=== PATIENT | female | born 1945 | race Caucasian/White ===

== ENCOUNTER → 2017-01-01 | Outpatient (CLI) | payer OTHER ==
[~2017-01-01] MED LIST: CALCIUM + D600 M1 PO; CYAN10005 PO; EVS60 PO; FLUT0.15 NAE; HYDR25TA4 PO; LISI-461 PO; LORA-741 PO; PRLSR20 PO; SIMV20TA2 PO; VITACAP9 PO; ZNTT/150 PO
--- NOTE | 2017-01-01 15:30 | MAMMOGRAPHY REPORT ---
BILATERAL DIGITAL SCREENING MAMMOGRAM WITH CAD: 01/01/2017 CLINICAL HISTORY: Routine screening examination. TECHNIQUE: Bilateral CC and MLO views were obtained. Current study was also evaluated with a Compu ter Aided Detection (CAD) system. COMPARISON: Comparison is made to exams dated: 01/06/2015 mammogram, 01/05/2014 mammogram, 01/04/2013 mammogram, 10/02/2015 ultrasound, 12/26/2010 mammogram, and 11/22/2009 mammogram - [facility]. BREAST COMPOSITION: There are scattered areas of fibroglandular density in both breasts. 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 There are other scattered benign-appearing calcifications bilaterally. Minimal vascular calcification as well. No new suspicious mass, architectural distortion or cluster of microcalcific ations is seen. IMPRESSION: ACR BI-RADS CATEGORY 1: NEGATIVE There is no mammographic evidence of malignancy. A 1 year screening mammogram is recommended. The p atient will receive written notification of the results. Approximately 10% of breast cancers are not detected with mammography. A negative mammographic repor t should not delay biopsy if a clinically suggestive mass is present. Mitzy Burk M.D. ay/:01/01/2017 15:02:53 Finish Patcher: Roslyn SMITH)(Marck), [facility] letter sent: Normal 1/2 BI-RADS Code: ACR BI-RADS Category 1: Negative
== END | disposition home or self-care (01) ==
LOC: C.MAMM 10:08
PROVIDERS: ATTEND Family Medicine
DX: Z12.31 Encounter for screening mammogram for malignant neoplasm of breast (principal)

== ENCOUNTER → 2017-01-14 | Outpatient (CLI) | payer OTHER ==
[2017-01-14 12:33] LABS: CHOLESTEROL/HDL RATIO 3.4
== END | disposition home or self-care (01) ==
LOC: C.LABPVFM 08:59
PROVIDERS: ATTEND Family Medicine
DX: E78.5 Hyperlipidemia, unspecified (principal)

== ENCOUNTER → 2017-02-17 | Outpatient (CLI) | payer OTHER ==
[~2017-02-17] MED LIST changes: -EVS60 PO; +RALO60TA31 PO
== END | disposition home or self-care (01) ==
LOC: C.LABPVFM 11:49
PROVIDERS: ATTEND Nurse Practitioner
DX: N39.0 Urinary tract infection, site not specified (principal)

== ENCOUNTER → 2017-07-03 | Outpatient (CLI) | payer OTHER ==
[~2017-07-03] MED LIST changes: +EVS60 PO; -RALO60TA31 PO
[2017-07-03 13:22] LABS: ALT/SGPT 25 U/L (12-78); BLOOD UREA NITROGEN 21 mg/dl (7-18); BUN/CREATININE RATIO 18.8 (10-20); CALCIUM 9.7 mg/dl (8.5-10.1); CARBON DIOXIDE 27 mmol/L (21-32); CHLORIDE 102 mmol/L (98-107); CHOLESTEROL 212 mg/dl (0-200); GLUCOSE 117 mg/dl (70-99); SODIUM 137 mmol/L (136-145); TRIGLYCERIDES 203 mg/dl (0-150); VERY LOW DENSITY LIPOPROT CALC 41 mg/dl
[2017-07-03 13:25] LABS: ALB/GLOB RATIO 1.1 (0.9-2); ALKALINE PHOSPHATASE 64 U/L (45-117); AST/SGOT 17 U/L (15-37); CHOLESTEROL/HDL RATIO 4.1; HDL CHOLESTEROL 52 mg/dl; LDL CHOLESTEROL CALCULATED 119 mg/dl
== END | disposition home or self-care (01) ==
LOC: C.LABPVFM 08:57
PROVIDERS: ATTEND Family Medicine
DX: Z00.00 Encounter for general adult medical examination without abnormal findings (principal); E78.5 Hyperlipidemia, unspecified

== ENCOUNTER → 2017-07-07 | Outpatient (CLI) | payer OTHER ==
[2017-07-07 12:47] LABS: ESTIMATED AVERAGE GLUCOSE 134 mg/dl; HA1C FLAG Normal (Normal)
== END | disposition home or self-care (01) ==
LOC: C.LABPVFM 08:54
PROVIDERS: ATTEND Family Medicine
DX: R73.09 Other abnormal glucose (principal)

== ENCOUNTER → 2017-07-15 | Day surgery (SDC) | payer OTHER ==
[2017-07-14 09:02] VITALS: Ht 167.6 cm; Wt 81.4 kg
[~2017-07-15] VITALS: Ht 167.6 cm; Wt 81.4 kg
[~2017-07-15] MED LIST changes: +LIDOCAINE HCL 2% 2 ML VIAL (20MG/ML) ONE; +PROPOFOL IV EMULSION 10 MG/ML 20 ML VIAL IV ONE; +SODIUM CHLORIDE 0.9% 500ML 500 ML IV ONE
--- NOTE | 2017-07-15 14:11 | Endo History and Physical ---
History & Physical Date of Service: Jul 15, 2017. Chief Complaint: Reflux, history of gi bleed Referring Physician: Dr. Baldomero Chan History of Present Illness Burning chest pain. Past Medical History Hypertension Past Surgical History Hx Cardiac Surgery: No Hx Internal Defibrillator: No Hx Pacemaker: No Hx Abdominal Surgery: Yes (PITER BSO) Hx of Implantable Prosthesis: No Hx Post-Op Nausea and Vomiting: No Hx Cancer Surgery: No Hx Thoracic Surgery: No Hx Orthopedic: No Hx Urinary Tract Surgery: No Family History None Social History Smoking Status: Never Smoker Hx Substance Use: No Hx Alcohol Use: No Allergies Coded Allergies: Chlordiazepoxide (Verified Allergy, Intermediate, HIVES, 07/14/17) Latex1 -Allergic Contact Dermititis (Verified Adverse Reaction, Mild, LOCAL DERMATITIS, 07/14/17) Current Medications Reported Home Medications Medications Dose Route/Sig Max Daily Dose Days Date Category Flonase Allergy Relief (Fluticasone Propionate (Nasal)) 50 Mcg/Act Spr 2 [place] NILS BID 07/14/17 Reported Zantac (Ranitidine HCl) 150 Mg Tab 150 Mg PO BID 07/14/17 Reported Cranberry Urinary Comfort (Vitamins C & E) 1 Cap Cap 2 Cap PO TID 07/14/17 Reported Zocor (Simvastatin) 20 Mg Tab 20 Mg PO HS 07/14/17 Reported Prilosec (Omeprazole) 20 Mg Capcr 20 Mg PO BID 07/14/17 Reported Hctz (Hydrochlorothiazide) 25 Mg Tab 25 Mg PO QAM 02/05/16 Reported Ativan (Lorazepam) 0.5 Mg Tab 0.5 Mg PO PRN 07/20/14 Reported Lisinopril 10 Mg Tab 10 Mg PO QAM 07/20/14 Reported Evista (Raloxifene) 60 Mg Tab 60 Mg PO QAM 07/20/14 Reported Vitamin B-12 (Cyanocobalamin) 1,000 Mcg Tab 1,000 Mcg PO DAILY 02/12/10 Reported Calcium + D600 M1 600 Mg PO DAILY 02/12/10 Reported Vital Signs Weight (Kilograms): 81.36 Height (Feet): 5 Height (Inches): 6 Date Time Temp Pulse Resp B/P (MAP) Pulse Ox O2 Delivery O2 Flow Rate FiO2 07/15/17 13:07 36.7 78 20 154/86 (108) 97 Room Air Physical Exam General Appearance: WD/WN, no apparent distress Respiratory/Chest: Auscultation: breath sounds normal, no wheezing Cardiovascular: Heart Auscultation: RRR, no murmurs Abdomen: Inspection & Palpation: soft, no tenderness, guarding & rebound Assessment and Plan EGD today.
--- NOTE | 2017-07-15 14:39 | GI REPORT ---
Procedure Date: 07/15/2017 2:09 PM Procedure: Upper GI endoscopy Indications: Chest pain (non cardiac) Medicines: Propofol per Anesthesia Complications: No immediate complications. Estimated blood loss: None. Estimated Blood Loss: Estimated blood loss: none. Procedure: Pre-Anesthesia Assessment: - Prior to the procedure, a History and Physical was performed, and patient medications, allergies and sensitivities were reviewed. The patient's tolerance of previous anesthesia was reviewed. - ASA Grade Assessment: II - A patient with mild systemic disease. After obtaining informed consent, the endoscope was passed under direct vision. Throughout the procedure, the patient's blood pressure, pulse, and oxygen saturations were monitored continuously. The On-site loaner was introduced through the mouth, and advanced to the third part of duodenum. The upper GI endoscopy was accomplished with ease. The patient tolerated the procedure well. Findings: The upper third of the esophagus, middle third of the esophagus and lower third of the esophagus were normal. The Z-line was regular and was found 35 cm from the incisors. Biopsies were taken with a cold forceps for histology. A small hiatus hernia was present. Multiple small semi-sessile polyps with no stigmata of recent bleeding were found in the gastric body. Biopsies were taken with a cold forceps for histology. Normal mucosa was found in the entire examined stomach. Biopsies were taken with a cold forceps for Helicobacter pylori testing. The examined duodenum was normal. Verification of patient identification for the specimens was done by the physician and nurse using the patient's name, date and medical record number. Impression: - Normal upper third of esophagus, middle third of esophagus and lower third of esophagus. - Z-line regular, 35 cm from the incisors. Biopsied. - Small hiatus hernia. - Multiple gastric polyps. Biopsied. - Normal mucosa was found in the entire stomach. Biopsied. - Normal examined duodenum. Recommendation: - Continue omeprazole twice daily, stop ranitidine. After one month, reduce omeprazole to once daily before breakfast. Isak Mckinney M.D. Isak Mckinney MD 07/15/2017 2:38:47 PM This report has been signed electronically. Note Initiated On: 07/15/2017 2:09 PM I attest to the content of the Intraoperative Record and orders documented therein, exceptions below
--- NOTE | 2017-07-15 14:42 | Discharge Instructions ---
Endoscopy Patient Instructions Date / Procedure(s) Performed Jul 15, 2017. EGD Allergy Information Coded Allergies: Chlordiazepoxide (Verified Allergy, Intermediate, HIVES, 07/14/17) Latex1 -Allergic Contact Dermititis (Verified Adverse Reaction, Mild, LOCAL DERMATITIS, 07/14/17) Discharge Date / Findings Jul 15, 2017. Small hiatal hernia, gastric polyps. Medication Instructions Stopped Medication(s): Patient was told to take only her lisinopril, prilosec and Zantac. Restart Stopped Medication(s): Stop ranitidine (Zantac). Continue omeprazole (Prilosec) twice a day before breakfast and before supper for one month. Then discontinue the evening dose and continue the morning dose. Resume other medications. Provider Instructions Activity Restrictions - No exercising or heavy lifting for 24 hours. - Do not drink alcohol the day of the procedure. - Do not drive a car or operate machinery until the day after the procedure. - Do not make any important decisions or sign important papers in 24 hours after the procedure. Following Day: - Return to full activity which may include returning to work/school. Diet Start your diet with liquids and light foods (jello, soup, juice, toast). Then eat your usual diet if not nauseated. Treatment For Common After Affects For mild abdominal pain, bloating, or excessive gas: - Rest - Eat lightly - Lie on right side Follow-Up Information Follow-up with Dr. Baldomero Chan as scheduled Anesthesia Information What You Should Know You have had a procedure that required some medicine to reduce anxiety and discomfort. This treatment is called moderate sedation. After receiving the treatment, you may be sleepy, but you will be able to breathe on your own. The effects of the treatment may last for several hours. Follow these instructions along with Activity/Diet recommendations noted above: * Do NOT do anything where dizziness or clumsiness would be dangerous. * Rest quietly at home today, then you can be up and about tomorrow. * Have a responsible person stay with you the rest of today. * You may have had an I.V. today. If so, you may take the dressing off later today. Recommendations Call your doctor if: * Trouble breathing * Continuous vomiting for more than 24 hours * Temperature above 101 degrees * Severe abdominal pain or bloating * Pain not relieved by pain medicine ordered * There is increased drainage or redness from any incision * A large amount of rectal bleeding greater than 2-3 tablespoons. (If you had a polyp/s removed or have hemorrhoids, a small amount of blood - from the rectum is to be expected.) * You have any unanswered questions or concerns. IN THE EVENT OF A SERIOUS EMERGENCY, GO TO THE NEAREST EMERGENCY ROOM Your discharge instructions were prepared by provider Isak Mckinney. Patient Instructions Signature Page Marilyn Yepez Patient (or Guardian) Signature/Date: I have read and understand the instructions given to me by my caregivers. Caregiver/RN/Doctor Signature/Date: The above-named patient and/or guardian has received patient instructions on this date. + Original Patient Signature Page (only) stays with chart. Please make copy for patient.
--- NOTE | 2017-07-15 14:53 | Anesthesiology Progress Note ---
Anesthesia Post Op Note Date & Time Jul 15, 2017 at 14:53 Vital Signs Pain Intensity: 0 Vital Signs Past 12 Hours Date Time Temp Pulse Resp B/P (MAP) Pulse Ox O2 Delivery O2 Flow Rate FiO2 07/15/17 14:40 78 20 128/76 (93) 98 Room Air 07/15/17 13:07 36.7 78 20 154/86 (108) 97 Room Air Notes Mental Status: alert / awake / arousable, participated in evaluation Pt Amnestic to Procedure: Yes Nausea / Vomiting: adequately controlled Pain: adequately controlled Airway Patency, RR, SpO2: stable & adequate BP & HR: stable & adequate Hydration State: stable & adequate Anesthetic Complications: no major complications apparent
[2017-07-15 15:10] VITALS: BP 134/80; PULSE 78; O2SAT 98
== END | disposition home or self-care (01) ==
LOC: C.GI 12:48
PROVIDERS: ATTEND Internal Medicine Gastroenterology
DX: R07.89 Other chest pain (principal); K31.7 Polyp of stomach and duodenum; K44.9 Diaphragmatic hernia without obstruction or gangrene; K21.9 Gastro-esophageal reflux disease without esophagitis; I10 Essential (primary) hypertension; Z90.710 Acquired absence of both cervix and uterus; Z90.722 Acquired absence of ovaries, bilateral; Z90.79 Acquired absence of other genital organ(s)

== ENCOUNTER → 2017-10-10 | Outpatient (CLI) | payer OTHER ==
[~2017-10-10] MED LIST changes: -EVS60 PO; -LIDOCAINE HCL 2% 2 ML VIAL (20MG/ML) ONE; -PROPOFOL IV EMULSION 10 MG/ML 20 ML VIAL IV ONE; +RALO60TA31 PO; -SODIUM CHLORIDE 0.9% 500ML 500 ML IV ONE
[2017-10-10 12:55] LABS: ESTIMATED AVERAGE GLUCOSE 137 mg/dl; HA1C FLAG Normal (Normal)
== END | disposition home or self-care (01) ==
LOC: C.LABPVFM 09:18
PROVIDERS: ATTEND Family Medicine
DX: R73.09 Other abnormal glucose (principal)

== ENCOUNTER → 2017-11-26 | Outpatient (CLI) | payer OTHER | END | disposition home or self-care (01) | LOC: C.LABPVFM 09:28 | PROVIDERS: ATTEND Family Medicine | DX: R39.9 Unspecified symptoms and signs involving the genitourinary system (principal) ==

== ENCOUNTER → 2018-01-01 | Outpatient (CLI) | payer OTHER ==
[~2018-01-01] MED LIST changes: +RANI150T85 PO; -ZNTT/150 PO
== END | disposition home or self-care (01) ==
LOC: C.MAMM 10:03
PROVIDERS: ATTEND Family Medicine
DX: M81.0 Age-related osteoporosis without current pathological fracture (principal)

== ENCOUNTER → 2018-01-02 | Outpatient (CLI) | payer OTHER ==
--- NOTE | 2018-01-05 15:17 | MAMMOGRAPHY REPORT ---
BILATERAL DIGITAL SCREENING MAMMOGRAM TOMOSYNTHESIS WITH CAD: 01/02/2018 CLINICAL HISTORY: Routine screening. Patient has no complaints. TECHNIQUE: Breast tomosynthesis in addition to standard 2D mammography was performed. Current study was also evaluated with a Computer Aided Detection (CAD) system. COMPARISON: Comparison is made to exams dated: 01/01/2017 mammogram, 01/01/2016 mammogram, 10/02/2015 marilyn mogram, 10/02/2015 ultrasound, 01/06/2015 mammogram, and 01/05/2014 mammogram - [facility]. BREAST COMPOSITION: There are scattered areas of fibroglandular density in both breasts. FINDINGS: There is a nodular 6 mm asymmetry seen within the left lateral anterior breast on the cc vi ew, not clearly evident on the MLO view, which may represent normal overlapping fibroglandular tissue although spot compression tomosynthesis views and possible breast ultrasound are recommended for fur ther evaluation. The remainder of both breasts are stable compared to prior exams, without suspicious masses, calcific ations, or areas of architectural distortion noted. Scattered bilateral benign-appearing calcificati ons are not significantly changed. 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 IMPRESSION: ACR BI-RADS CATEGORY 0: INCOMPLETE EVALUATION: NEED ADDITIONAL IMAGING EVALUATION Left breast asymmetry, for which additional imaging evaluation is recommended. The patient will be c alled to schedule an appointment. Approximately 10% of breast cancers are not detected with mammography. A negative mammographic report should not delay biopsy if a clinically suggestive mass is present. Klarissa Izquierdo M.D. ah/:01/02/2018 16:14:00 Nurse Intern: Radha Michaels [facility] letter sent: Addl Imaging 0 BI-RADS Code: ACR BI-RADS Category 0: Incomplete Evaluation: Need Additional Imaging Evaluation
== END | disposition home or self-care (01) ==
LOC: C.MAMM 10:02
PROVIDERS: ATTEND Family Medicine
DX: Z12.31 Encounter for screening mammogram for malignant neoplasm of breast (principal)

== ENCOUNTER → 2018-01-15 | Outpatient (CLI) | payer OTHER ==
--- NOTE | 2018-01-15 15:08 | MAMMOGRAPHY REPORT ---
UNILATERAL LEFT DIGITAL DIAGNOSTIC MAMMOGRAM TOMOSYNTHESIS AND TARGETED LEFT ULTRASOUND: 01/15/2018 CLINICAL HISTORY: Callback from screening mammogram for left breast asymmetry. TECHNIQUE: Breast tomosynthesis in addition to standard 2D mammography was performed. Spot compress ion left CC and MLO 2D and tomosynthesis images were obtained. COMPARISON: Comparison is made to exams dated: 01/02/2018 mammogram, 01/01/2017 mammogram, 01/01/2016 mamm ogram - [facility], 10/02/2015, 01/06/2015 mammogram, and 01/05/2014 mammogram - [facility]. BREAST COMPOSITION: There are scattered areas of fibroglandular density in the left breast. FINDINGS: The previously described nodular 6 mm asymmetry seen within the left lateral breast does no t clearly persist on the additional spot compression views. Targeted ultrasound was performed of the left lateral breast in the region of the mammographic asymmetry. In the left breast at 1:00 periare olar region, there is an oval circumscribed hypoechoic solid-appearing 5 x 3 x 3 mm mass. This may c orrespond with the mammographic asymmetry or may be incidentally noted on ultrasound. The mass is in determinate and ultrasound-guided core needle biopsy is recommended for further evaluation. A small oval anechoic mass with a thin internal septation measuring 5 x 3 mm is seen within the left 4:00 per iareolar breast, consistent with a benign cyst. IMPRESSION: ACR BI-RADS CATEGORY 4: SUSPICIOUS, TARGETED ULTRASOUND ACR BI-RADS CATEGORY 4: SUSPICIO US Hypoechoic 5 mm mass within the left 1:00 breast on ultrasound, which may correspond with the mammogr aphic asymmetry. The mass is indeterminate and ultrasound-guided core needle biopsy is recommended f or further evaluation. A phone call was made to the physician's office to confirm faxed results were received. The patient has been verbally notified of the results. She tentatively scheduled the biopsy before leaving the [facility]. Approximately 10% of breast cancers are not detected with mammography. A negative mammographic report should not delay biopsy if a clinically suggestive mass is present. Klarissa Izquierdo M.D. /:01/15/2018 12:11:08 Knife Finisher: Stoney SMITH)(Marck), [facility] letter sent: Abnormal 4/5 BI-RADS Code: ACR BI-RADS Category 4: Suspicious Ultrasound BI-RADS: ACR BI-RADS Category 4: Suspici ous
== END | disposition home or self-care (01) ==
LOC: C.MAMM 10:25
PROVIDERS: ATTEND Family Medicine
DX: N63.20 Unspecified lump in the left breast, unspecified quadrant (principal)

== ENCOUNTER → 2018-01-27 | Outpatient (CLI) | payer OTHER ==
--- NOTE | 2018-01-27 09:00 | Discharge Instructions ---
Discharge Instructions Procedure Procedure Date: Jan 27, 2018. Reason for visit: Left Mass. Discharge Discharge Date: Jan 27, 2018. Discharge Diagnosis: post left breast ultrasound guided core biopsy Medications Restart Stopped Medication(s): May restart Aspirin this evening Instructions Activity Recommendations: Additional Limitations (see below) Return to School/Work: no limitations Recommended Home Diet: No Limitations Provider Instructions: ACTIVITY RECOMMENDATIONS: * No lifting, pushing, pulling or exercising the affected side for three days. RETURN TO SCHOOL/WORK: * You may return to work/school after the procedure, but do not perform any strenuous activities for 24 to 48 hours. MEDICATIONS: * Tylenol (two 325 mg) every four to six hours if needed for mild pain (if not allergic to Tylenol). DIET: * Resume previous diet. SPECIAL CARE INSTRUCTIONS: * Keep biopsy site dry for 24 hours. May shower after 24 hours, but do not soak (bathe) incision. * May remove Tegaderm (plastic patch) tomorrow AFTER showering. * Leave the steri-strips on for one week. Allow the steri-strips to fall off by themselves. If not off after one week, you may remove them. You may place a Bandaid crosswise over the strips, if desired. * Apply ice 10 minutes on and 10 minutes off as needed. * Wear a bra at bedtime to sleep more comfortably for 2-3 days. * Your referring physician should have the results after approximately 5 to 7 business days. * Call for unusual bleeding, fever, drainage, etc or if you have any questions call [phone] during normal business hours or after hours call Dr Burk, . FOLLOW UP VISIT: Follow-up with Referring Physician as scheduled. Allergies Coded Allergies: Chlordiazepoxide (Verified Allergy, Intermediate, HIVES, 07/14/17) Latex1 -Allergic Contact Dermititis (Verified Adverse Reaction, Mild, LOCAL DERMATITIS, 07/14/17) Janet Luna Recommendations: Call your doctor if: * Temperature above 101 degrees * Pain not relieved by pain medicine ordered * There is increased drainage or redness from any incision * You have any unanswered questions or concerns. Your Doctors Instructions noted above were prepared by provider Mitzy Burk. Patient Signature Section: Patient Instructions Signature Page Marilyn Yepez Patient (or Guardian) Signature/Date: I have read and understand the instructions given to me by my caregivers. Caregiver/RN/Doctor Signature/Date: The above-named patient and/or guardian has received patient instructions on this date. + Original Patient Signature Page (only) stays with chart. Please make copy for patient.
--- NOTE | 2018-01-28 07:55 | MAMMOGRAPHY REPORT ---
ULTRASOUND GUIDED BIOPSY LEFT BREAST: 01/27/2018 CLINICAL HISTORY: 72-year-old woman presents for biopsy of an indeterminate 5 mm hypoechoic solid mas s, possibly within a duct, in the 1:00 periareolar left breast. COMPARISON: Comparison is made to exams dated: 01/15/2018 mammogram, 01/15/2018 ultrasound, 01/02/2018 m ammogram, 01/01/2017 mammogram, 01/01/2016 mammogram, and 10/02/2015 mammogram - [facility]. PATIENT CONSENT: The procedure, risks and benefits were discussed with the patient and informed conse nt was obtained both verbally and in writing. Specific risks to this procedure include: bleeding, in fection, puncture of adjacent structure, nontarget biopsy, sampling error, pain, metal allergy and me dication reaction. PROCEDURE DESCRIPTION: A time out was performed and the left breast was agreed as the site of biopsy. The skin was prepped and draped in the usual sterile fashion. The solid, 5 mm, possibly intraductal mass in the 1:00 periareolar left breast was chosen as the target for biopsy. Subcutaneous and intrap arenchymal 1% buffered lidocaine, with and without epinephrine, was administered as local anesthesia. A skin incision was made. Through the incision, 5 samples were taken with a 14 gauge Achieve biopsy device. A ribbon shaped metallic marker was placed at the biopsy site. Hemostasis was achieved after manual compression. The patient tolerated the procedure well and there was no immediate complication . The samples were sent to the pathology department in an appropriately labeled container. Postprocedure left CC and ML tomosynthesis images were obtained. There is a new ribbon-shaped biopsy marker clip and no significant hematoma in the upper outer anterior left breast, at the site of the biopsied 5 mm mass seen on ultrasound. Although positioning is slightly different comparing to the screening exam, the biopsy marker clip does appear to align with the mammographic asymmetry i n question, seen in the lateral anterior breast. IMPRESSION: ULTRASOUND GUIDED BIOPSY Status post ultrasound-guided core biopsy of an indeterminate solid appearing 5 mm mass in the 1:00 p eriareolar left breast, with ribbon-shaped biopsy marker clip placed at the site. The patient will receive notification of the biopsy results from her referring physician. Mitzy Burk M.D. ay/:01/27/2018 09:28:22 Sanitizer: Radha CORONA(Pratibha)(M), [facility]
--- NOTE | 2018-01-28 07:58 | MAMMOGRAPHY REPORT ---
UNILATERAL LEFT DIGITAL DIAGNOSTIC MAMMOGRAM TOMOSYNTHESIS: 01/27/2018 CLINICAL HISTORY: Status post ultrasound-guided core biopsy of an indeterminate 5 mm hypoechoic solid -appearing mass in the 1:00 periareolar left breast. Please refer to the report from left breast ultrasound-guided core biopsy performed at the same time for full detail. IMPRESSION: POST PROCEDURE IMAGING FOR MARKER PLACEMENT Please refer to the report from left breast ultrasound-guided core biopsy performed at the same time for full detail. Approximately 10% of breast cancers are not detected with mammography. A negative mammographic report should not delay biopsy if a clinically suggestive mass is present. Mitzy Burk M.D. ay/:01/27/2018 09:01:04 Cement Boat And Barge Loader: Radha CORONA(R)(M), [facility] BI-RADS Code: Post Procedure Imaging For Marker Placement
== END | disposition home or self-care (01) ==
LOC: C.MAMM 08:11
PROVIDERS: ATTEND Family Medicine
DX: R92.8 Other abnormal and inconclusive findings on diagnostic imaging of breast (principal); N63.20 Unspecified lump in the left breast, unspecified quadrant; D24.2 Benign neoplasm of left breast

== ENCOUNTER → 2018-02-17 | Outpatient (CLI) | payer OTHER ==
[~2018-02-17] MED LIST changes: +CALC-354 PO
--- NOTE | 2018-02-17 10:56 | DIAGNOSTIC IMAGING REPORT ---
CHEST 2 VIEWS ROUTINE CLINICAL HISTORY: Breast mass. Preoperative evaluation. COMPARISON STUDY: Chest radiograph February 12, 2010. FINDINGS: Lung volumes are normal. No pneumothorax or pleural the effusion is noted. There is no evidence for pulmonary edema. A suspected bone island within T12 is noted. There is a calcified granuloma within the right midlung. IMPRESSION: No acute cardiopulmonary findings. Electronically signed by: Yonny Angela M.D. 02/17/2018 10:55 AM Dictated Date/Time: 02/17/2018 10:52 AM
[2018-02-17 12:10] LABS: BASO % 0.6 %; BASO ABS # 0.04 K/uL (0-0.2); EOS ABS # 0.19 K/uL (0-0.5); HEMOGLOBIN 13.6 g/dL (12.0-16.0); IG# 0.02 K/uL (0.00-0.02); LYMPH % 36.4 %; LYMPH ABS # 2.32 K/uL (1.2-3.4); MEAN CORPUSCULAR HEMOGLOBIN 27.9 pg (25-34); MEAN CORPUSCULAR HGB CONC 33.2 g/dl (32-36); MEAN PLATELET VOLUME 10.5 fL (7.4-10.4); MONO % 8.6 %; MONO ABS # 0.55 K/uL (0.11-0.59); NEUT % 51.1 %; NEUT ABS # 3.25 K/uL (1.4-6.5); PLATELET COUNT 288 K/uL (130-400); RED CELL DISTRIBUTION WIDTH CV 14.2 % (11.5-14.5); RED CELL DISTRIBUTION WIDTH SD 43.6 fL (36.4-46.3); WHITE BLOOD COUNT 6.37 K/uL (4.8-10.8)
[2018-02-17 13:04] LABS: BLOOD UREA NITROGEN 24 mg/dl (7-18); CALCIUM 9.3 mg/dl (8.5-10.1); CARBON DIOXIDE 28 mmol/L (21-32); CREATININE 1.11 mg/dl (0.60-1.20); GLUCOSE 121 mg/dl (70-99); POTASSIUM 3.7 mmol/L (3.5-5.1); SODIUM 137 mmol/L (136-145)
[2018-02-17 13:08] LABS: ALKALINE PHOSPHATASE 62 U/L (45-117); ALT/SGPT 24 U/L (12-78); AST/SGOT 14 U/L (15-37); TOTAL PROTEIN 7.7 gm/dl (6.4-8.2)
== END | disposition home or self-care (01) ==
LOC: C.CPL 09:45
PROVIDERS: ATTEND Surgery
DX: N63.0 Unspecified lump in unspecified breast (principal)

== ENCOUNTER → 2018-02-23 | Day surgery (SDC) | payer OTHER ==
[2018-02-18 15:28] VITALS: BMI 29.0
[~2018-02-23] VITALS: Ht 162.6 cm; Wt 80.5 kg
[~2018-02-23] MED LIST changes: +ATROPINE SULFATE 0.1 MG/ML 5ML SYR IV PRN; +BUPIVACAINE 0.5 % 5 MG/1 ML MPF 30ML VIAL ONE; -CALCIUM + D600 M1 PO; +CEFAZOLIN 2000MG IV PUSH 15 ML IV SCH; +DEXAMETHASONE SOD INJ 4 MG/ML VIAL ONE; +EpHEDrine SULFATE INJ 50 MG/ML AMP IV PRN; +FENTANYL CITRATE INJ 50 MCG/1 ML 2 ML VIAL IV PRN; +FENTANYL CITRATE INJ 50 MCG/1 ML 2 ML VIAL ONE; +KETOROLAC TROMETHAMINE 30 MG/ML VIAL ONE; +LACTATED RINGER'S 1000ML 1,000 ML IV SCH; +LIDOCAINE HCL 2% 2 ML VIAL (20MG/ML) ONE; +MIDAZOLAM HCL 1 MG/ML 2ML VIAL ONE; +MoRPHine SULFATE 4 MG/ML 1 ML CARP\\VIAL IV PRN; +ONDANSETRON INJ 2 MG/ML 2 ML VIAL IV PRN; +ONDANSETRON INJ 2 MG/ML 2 ML VIAL ONE; +OXYC-57 PO; +OXYCODONE/ACETAMINOPHEN 5-325 TAB PO PRN; +PHENYLEPHRINE 100MCG/ML 5ML SYR ONE; +PROMETHAZINE HCL INJ 6.25 MG in SODIUM CHLORIDE 0.9% 50ML 50 ML IV PRN; +PROPOFOL IV EMULSION 10 MG/ML 20 ML VIAL ONE; -RANI150T85 PO; +SODIUM CHLORIDE 0.9% PF 50 ML VIAL ONE
[2018-02-23 10:37] VITALS: BP 174/88; PULSE 88; TEMP 36.8; O2SAT 98; Ht 162.6 cm; Wt 80.5 kg
--- NOTE | 2018-02-23 12:14 | Discharge Instructions ---
Discharge Instructions Date of Service Feb 23, 2018. Visit Reason for Visit: Left Breast Mass Discharge Discharge Diagnosis / Problem: breast biopsy Discharge Goals Goal(s): Diagnostic testing Activity Recommendations Activity Limitations: as noted below Shower/Bathe: no limitations Driving or Machine Use: no limitations (if not taking Percocet) Anesthesia . Post Anesthesia Instructions: If you have had General Anesthesia or IV Sedation: * Do not drive today. * Resume driving when surgeon permits. * Do not make important decisions or sign legal documents today. * Call surgeon for: 1. Temperature elevations greater than 101 degrees F. 2. Uncontrollable pain. 3. Excessive bleeding. 4. Persistent nausea and vomiting. 5. Medication intolerance (nausea, vomiting or rash). * For nausea and vomiting use only clear liquids such as: tea, soda, bouillon until nausea subsides, then gradually increase diet as tolerated. * If you have any concerns or questions, call your surgeon's office. If physician is unavailable and it is an emergency, call 911 or go to the nearest emergency room. . Instructions / Follow-Up Instructions / Follow-Up Dr. Hsieh in 1-2 weeks as planned, call [phone] if you have any questions Diet Recommendations Recommended Home Diet: no limitations Pending Studies Studies pending at discharge: yes List of pending studies: pathology Medical Emergencies . Who to Call and When: Medical Emergencies: If at any time you feel your situation is an emergency, please call 911 immediately. . Non-Emergent Contact Non-Emergency issues call your: Surgeon Call Non-Emergent contact if: you have a fever, temperature is above 101.5, your pain is not controlled, wound has increased redness, you have any medication questions . . "Provider Documentation" section prepared by Ariel Colón. .
[2018-02-23 13:50] VITALS: BP 156/77; PULSE 82; TEMP 36.5; O2SAT 94
--- NOTE | 2018-02-23 14:19 | Anesthesiology Progress Note ---
Anesthesia Post Op Note Date & Time Feb 23, 2018 at 14:19 Vital Signs Pain Intensity: 2 Vital Signs Past 12 Hours Date Time Temp Pulse Resp B/P (MAP) Pulse Ox O2 Delivery O2 Flow Rate FiO2 02/23/18 13:50 36.5 82 18 156/77 94 Room Air 02/23/18 12:53 36.1 84 16 136/81 98 Oxymask 10 02/23/18 10:37 36.8 88 18 174/88 (116) 98 Room Air Notes Mental Status: alert / awake / arousable, participated in evaluation Pt Amnestic to Procedure: Yes Nausea / Vomiting: adequately controlled Pain: adequately controlled Airway Patency, RR, SpO2: stable & adequate BP & HR: stable & adequate Hydration State: stable & adequate Anesthetic Complications: no major complications apparent
[2018-02-23 14:20] VITALS: BP 137/72; PULSE 81; TEMP 36.5; O2SAT 93
== END | disposition home or self-care (01) ==
LOC: C.ACU 10:15
PROVIDERS: ATTEND Surgery
DX: D24.2 Benign neoplasm of left breast (principal); D05.02 Lobular carcinoma in situ of left breast; D64.9 Anemia, unspecified; F41.9 Anxiety disorder, unspecified; M19.90 Unspecified osteoarthritis, unspecified site; K21.9 Gastro-esophageal reflux disease without esophagitis; E78.5 Hyperlipidemia, unspecified; I10 Essential (primary) hypertension; Z83.3 Family history of diabetes mellitus; Z82.49 Family history of ischemic heart disease and other diseases of the circulatory system; Z79.899 Other long term (current) drug therapy

== ENCOUNTER → 2018-02-23 | Outpatient (CLI) | payer OTHER ==
[~2018-02-23] MED LIST changes: -ATROPINE SULFATE 0.1 MG/ML 5ML SYR IV PRN; -BUPIVACAINE 0.5 % 5 MG/1 ML MPF 30ML VIAL ONE; -CEFAZOLIN 2000MG IV PUSH 15 ML IV SCH; -DEXAMETHASONE SOD INJ 4 MG/ML VIAL ONE; -EpHEDrine SULFATE INJ 50 MG/ML AMP IV PRN; -FENTANYL CITRATE INJ 50 MCG/1 ML 2 ML VIAL IV PRN; -FENTANYL CITRATE INJ 50 MCG/1 ML 2 ML VIAL ONE; -KETOROLAC TROMETHAMINE 30 MG/ML VIAL ONE; -LACTATED RINGER'S 1000ML 1,000 ML IV SCH; -LIDOCAINE HCL 2% 2 ML VIAL (20MG/ML) ONE; -MIDAZOLAM HCL 1 MG/ML 2ML VIAL ONE; -MoRPHine SULFATE 4 MG/ML 1 ML CARP\\VIAL IV PRN; -ONDANSETRON INJ 2 MG/ML 2 ML VIAL IV PRN; -ONDANSETRON INJ 2 MG/ML 2 ML VIAL ONE; -OXYCODONE/ACETAMINOPHEN 5-325 TAB PO PRN; -PHENYLEPHRINE 100MCG/ML 5ML SYR ONE; -PROMETHAZINE HCL INJ 6.25 MG in SODIUM CHLORIDE 0.9% 50ML 50 ML IV PRN; -PROPOFOL IV EMULSION 10 MG/ML 20 ML VIAL ONE; -SODIUM CHLORIDE 0.9% PF 50 ML VIAL ONE
--- NOTE | 2018-02-23 11:03 | History & Physical Bridge Note ---
H&P Re-Evaluation Bridge Note: I have examined the patient, reviewed the History & Physical and in the interval since the performance of the History & Physical I have noted the following changes of clinical significance: Wire placed, films reviewed, discussed with Dr. Burk. No changes noted
--- NOTE | 2018-02-23 12:42 | [facility] Post Operative Brief Note ---
Immediate Operative Summary Operative Date Feb 23, 2018. Pre-Operative Diagnosis left breast mass Post-Operative Diagnosis same Procedure(s) Performed left breast wire localized lumpectomy Surgeon Ian Hsieh DO Supervisor Twisting Department Surgeon(s) Ike Colón PA Estimated Blood Loss 5 mL Findings Consistent with Post-Op Diagnosis mammo confirmed excision Specimens left breast mass Drains None Anesthesia Type General/Epidural Complication(s) none Disposition Accompanied Pt To Recover: no Disposition: Recovery Room / PACU
--- NOTE | 2018-02-23 12:46 | [facility] Operative Report ---
Operative Report Operative Date Feb 23, 2018. Pre-Operative Diagnosis left breast mass Post-Operative Diagnosis Same Procedure(s) Performed Left breast wire localized excisional biopsy Surgeon Ian Hsieh DO Brim Stitcher Surgeon(s) Ike Colón PA Estimated Blood Loss 5 mL Findings Radiology confirmed excision of clip, wire, mass Specimens left breast mass Drains None Anesthesia GETA Complication(s) None Disposition Recovery Room / PACU Indications 72-year-old female left breast mass that showed atypical papilloma on core needle biopsy, plan for wire localized left breast excisional biopsy. The risks of the procedure were discussed, all questions were answered, and the patient agreed to proceed with surgery as planned. Description of Procedure The patient had a localization wire placed in radiology prior to surgery. The films were reviewed for incisional planning. The patient was properly identified, consented, and taken to the operating room where she was placed in the supine position. General endotracheal anesthesia was induced. SCDs and a safety belt were placed. Preoperative antibiotics were administered. The patient's bilateral chest was prepped and draped in the standard sterile fashion. Surgical timeout was performed and all parties were in agreement that this was the correct patient and procedure to be performed and we continued as planned. A transverse incision was made on the left and deepened down through the subcutaneous tissue with electrocautery. Flaps were raised in all directions. Wire was delivered into the incision. The breast mass was circumferentially dissected, excised down to chest wall, and passed off the table as specimen. The specimen was oriented. A mammogram was performed of the specimen in radiology and confirmed excision of the wire, clip, and previously imaged abnormality. The wound was irrigated and hemostasis was confirmed. The skin was closed with interrupted 3-0 Vicryl deep dermal sutures, followed by 4-0 Monocryl running subcuticular suture. Dermabond was placed over the wound. The patient was extubated in the operating room and taken to the PACU where she recovered without apparent incident. All sponge, instrument and needle counts were correct at the conclusion of the procedure. The patient tolerated the procedure well. The physician's events and promotions assistant was present and scrubbed for the crucial portions of the case. He was essential in retraction and exposure, removal of the specimen , closure of the incisions, and placement of the dressings. I attest to the content of the Intraoperative Record and any orders documented therein. Any exceptions are noted below.
--- NOTE | 2018-02-23 14:12 | MAMMOGRAPHY REPORT ---
SPECIMEN LEFT BREAST: 02/23/2018 CLINICAL HISTORY: Recent biopsy-proven papilloma in the 1:00 left breast. Patient presents for preop erative needle and wire localization prior to excisional biopsy. Please refer to the report from left breast mammogram/tomosynthesis guided needle localization perfor med at the same time for full detail. IMPRESSION: SPECIMEN Please refer to the report from left breast mammogram/tomosynthesis guided needle localization perfor med at the same time for full detail. Mitzy Burk M.D. ay/:02/23/2018 10:15:11 Payroll Administrative Assistant: Radha Michaels, [facility]
--- NOTE | 2018-02-23 14:12 | MAMMOGRAPHY REPORT ---
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 Patient presen ts for preoperative wire localization. COMPARISON: Comparison is made to exams dated: 01/27/2018 mammogram, 01/27/2018 ultrasound biopsy, 2017 mammogram, 01/15/2018 ultrasound, 01/02/2018 mammogram, and 01/01/2017 mammogram - [facility]. PATIENT CONSENT: The risks of the procedure were explained to the patient and informed consent was ob tained. The patient denied eating or drinking anything this morning that would preclude anesthesia. She also denied allergy to lidocaine. PROCEDURE DESCRIPTION: Prior left breast imaging including diagnostic mammograms and ultrasound dated 01/15/2018, ultrasound-guided core biopsy dated 01/27/2018 and postprocedure mammograms from the same d ay were reviewed. The ribbon-shaped biopsy marker clip in the 1:00 anterior left breast is the inten ded target for localization. With the patient in the seated position, the left breast was placed in lateralmedial compression. 1% buffered Lidocaine without epinephrine was administered as local anes thesia. A 5cm Aparicio II needle and wire combination was inserted into the breast. Optimal positionin g was confirmed and the needle was removed, leaving the wire in place, as per operating surgeon's pre ference. The entire procedure including approach and wire length were discussed with the operating surgeon prior to surgery. The patient tolerated the procedure well and there was no immediate compli cation. She was transferred to the hospital operating room in satisfactory condition. The specimen radiograph obtained from the left breast demonstrates the localizing wire and ribbon-sha ped biopsy marker clip, compatible with successful preoperative localization and subsequent surgical excision. IMPRESSION: NEEDLE LOCALIZATION Status post preoperative wire localization for a biopsy-proven atypical papilloma in the 1:00 left br east. The imaged specimen includes the intended abnormality. The patient will receive notification of the pathology results from her referring physician. Mitzy Burk M.D. ay/:02/23/2018 12:43:56 Mechanical Designer: Radha Michaels, [facility]
== END | disposition home or self-care (01) ==
LOC: C.MAMM 09:09
PROVIDERS: ATTEND Surgery
DX: D24.2 Benign neoplasm of left breast (principal); D05.02 Lobular carcinoma in situ of left breast

== ENCOUNTER → 2018-03-12 | Outpatient (CLI) | payer OTHER ==
[2018-03-12 12:38] LABS: HEMATOCRIT 39.9 % (37-47); MEAN CELL VOLUME 83.6 fL (80-100); MEAN CORPUSCULAR HEMOGLOBIN 27.3 pg (25-34); MEAN CORPUSCULAR HGB CONC 32.6 g/dl (32-36); MEAN PLATELET VOLUME 10.7 fL (7.4-10.4); PLATELET COUNT 269 K/uL (130-400); RED CELL DISTRIBUTION WIDTH CV 14.9 % (11.5-14.5); WHITE BLOOD COUNT 5.48 K/uL (4.8-10.8)
[2018-03-12 13:08] LABS: ALBUMIN 3.7 gm/dl (3.4-5.0); ALKALINE PHOSPHATASE 59 U/L (45-117); ALT/SGPT 21 U/L (12-78); AST/SGOT 14 U/L (15-37); BLOOD UREA NITROGEN 22 mg/dl (7-18); CALCIUM 8.9 mg/dl (8.5-10.1); CARBON DIOXIDE 28 mmol/L (21-32); CHOLESTEROL 192 mg/dl (0-200); CREATININE 1.01 mg/dl (0.60-1.20); GLUCOSE 124 mg/dl (70-99); LDL CHOLESTEROL CALCULATED 112 mg/dl; POTASSIUM 3.8 mmol/L (3.5-5.1); SODIUM 138 mmol/L (136-145)
[2018-03-12 13:31] LABS: HEMOGLOBIN A1C 6.5 % (4.5-5.6)
== END | disposition home or self-care (01) ==
LOC: C.LABPVFM 08:46
PROVIDERS: ATTEND Family Medicine
DX: Z00.00 Encounter for general adult medical examination without abnormal findings (principal); R73.09 Other abnormal glucose; E78.5 Hyperlipidemia, unspecified

== ENCOUNTER 2021-02-11 17:20 | Observation (INO) ==
[2021-02-11] MEDS ORDERED: ASPIRIN CHEW 324 MG PO STA (18:58)
--- NOTE | 2021-02-11 19:04 | XRay Report ---
XR chest 1V portable CLINICAL HISTORY: Atypical chest pain COMPARISON STUDY: 02/17/2018 FINDINGS: The heart is borderline enlarged. There is no failure. There are bibasilar opacity statisti heath representing subsegmental atelectasis. There is no failure. There is a suspected T12 sclerotic lesion. This remains unchanged from the prior study[ IMPRESSION: Subsegmental atelectatic changes at the lung bases. ACT 112: Negative or not required by law. Electronically signed by: Tanner Elizondo M.D. 02/11/2021 7:03 PM
--- NOTE | 2021-02-11 19:20 | Emergency Department Note ---
Impression & Plan Abnormal EKG, Back pain, Anginal equivalent, Acute hyponatremia ED Provider Note NAME: JOSE JACOBSEN AGE: 75 SEX: F : 1945 ARRIVES VIA: Walk-In INFORMANT: Patient, ED PROVIDER(S): Isak Randolph DO CHIEF COMPLAINT: Back pain HPI: The patient is a 75-year-old female who presented to the emergency department at the request of the emergency department for reevaluation. The patient has been having upper back and neck pain for approximately 2 weeks. The patient describes the pain as in her mid back into her neck and sometimes into her shoulders. She denies having any numbness or weakness in the arms or legs. She denies having any trauma. She was seen by her primary care physician. This was felt to be musculoskeletal in nature. The patient did have outpatient radiographic studies. She was pending referral for findings that were noted on x-rays. Her pain became worse today and she presented to the emergency d epartment earlier. At that time she was found to have an abnormal EKG. The changes were very nonspecific. The patient was called and asked to return to the emergency department today for further reevaluation. At this time the patient states her pain is somewhat improved. She states the pain is not exertional in nature. She states the pain is sometimes worsened with palpation over the area as well as movement of her head and torso. She states she did notice at one point her upper extremities were swollen. She also notices lower extremity swelling left greater than right but this is not new according to her significant other. She did take the pain medication she was given and she stat es the pain is somewhat improved. She denies having any abdominal pain. She is had no fever or cough. ROS: See above HPI for pertinent positives & negatives. A total of 10 systems reviewed and were otherwise negative. PAST MEDICAL HISTORY: See Below PAST SURGICAL HISTORY: See Below FAMILY HISTORY: See Below SOCIAL HISTORY: See Below HOME MEDICATIONS: See Below ALLERGIES: See Below VITALS: See Below PHYSICAL EXAMINATION: GENERAL: The patient is awake and alert. The patient is nonanxious appearing. EYES: The conjunctivae are clear. The pupils are round and reactive. EARS, NOSE, MOUTH AND THROAT: The nose is without any evidence of any deformity. NECK: No midline tenderness was noted. RESPIRATORY: Normal respiratory effort is noted there is no evidence of wheezing rhonchi or rales CARDIOVASCULAR: Regular rate and rhythm noted there no murmurs rubs or gallops normal S1 normal S2. GASTROINTESTINAL: The abdomen is soft. Abdomen is nontender. BACK: No specific midline tenderness was noted. Range of motion does appear intact. MUSCULOSKELETAL/EXTREMITIES: There is no evidence of gross deformity full range of motion is noted in the hips and shoulders. SKIN: Skin was warm and dry. Pedal edema was noted bilaterally left greater than right. There was no calf tenderness. NEUROLOGIC: Patient is awake alert and oriented x3 strength is symmetric patellar reflexes are 2+ bilaterally MEDICAL DECISION MAKING: The patient is a 75-year-old female who presented to the emergency department for evaluation of back pain. The patient initially presented earlier today. At that time this was felt to be secondary to musculoskeletal pain. The patient does have reproducible pain and was even seen by her primary care physician earlier for this. The patient had radiographic studies as an outpatient and is scheduled for follow-up for an abnormality which was felt to be a possible metastatic lesion in her thoracic spine. The patient was called and asked to return to the emergency department this evening because of an abnormal EKG. In the emergency department her pain is very minimal. I discussed the patient's laboratory and radiographic studies with her. Her cardiac biomarker was negative. EKG is not revealing dynamic changes. The patient was treated with aspirin and started on heparin in the emergency department. I discussed her case with the on-call [facility] hospitalist as well as the on-call [facility] school age program teacher. The patient was found to have low sodium. I am unsure of the significance of this at this time. This may be tied to the patient's foci in her thoracic spine and may require further work-up. The patient was agreeable to inpatient management. Likely she will need further evaluation to determine if this is a cardiac cause to her pain or if it is from the lesion on the spine. Triage Nursing notes reviewed. Prior medical records reviewed Vital Signs: reviewed and remarkable for no significant abnormalities Differential diagnosis: Cardiac ischemia, aortic dissection, pulmonary embolism, pneumothorax, pneumonia, pericarditis, myocarditis, esophageal rupture, GERD, cholecystitis, pancreatitis, musculoskeletal, as well as other pathologies. ER treatment provided: See below Diagnostics interpreted by me: ECG: EKG was obtained in the emergency department. My interpretation is normal sinus rhythm at 82 bpm. There is no ectopy. Nonspecific ST depressions were noted in the anterior leads. There was also some OH depression and minimal ST segment elevation noted in the inferior leads. This tracing was compared to the tracing that was done earlier today. There was no specific changes noted. Both tracings were compared to a tracing from February 172017. The ischemic changes are new compared to the earlier tracing in 2018. A second EKG was obtained in the emergency department. My interpretation is normal sinus rhythm at 86 bpm. Persistence of the OH depression as well as the ST segment abnormalities was noted. Cardiac Monitoring: An order was placed for continuous cardiac monitoring. The monitor shows a rate of 85 bpm with sinus rhythm. Laboratory studies: As stated above and show below. Imaging studies: See below Consultation(s): 193: I discussed this case with Dr. Marte who is on-call for the [facility] cardiology group. He is agreed to evaluate the patient. He did evaluate the EKGs. 1944: I discussed this case with Dr. Alicea who is on-call for the [facility] hospitalist group. ED COURSE: Procedures: none PDMP:reviewed and no issues Critical Care: I have personally spent greater than 45 minutes of critical care time in the direct management of this patient. This includes bedside care, interpretation of diagnostic studies, and testing, discussion with consultants, patient, and family members, and other required patient management activities. This 45 minutes is in excess of all separately billable procedures. Past Med/Surg History Medical History Colitis GERD (gastroesophageal reflux disease) GI (gastrointestinal bleed) History of colon polyps Hyperlipidemia Hypertension Ischemic colitis Left knee pain Migraine Surgical History History of bilateral cataract extraction History of colonoscopy History of esophagogastroduodenoscopy (EGD) History of left breast biopsy x3--benign, pt states she takes tamoxifen as a preventative for breast cancer History of total hysterectomy with bilateral salpingo-oophorectomy (BSO) Family History Mother Family history of diabetes mellitus Family/Other Family hx of colon cancer granddaughter Sister Breast cancer Other No family history of adverse response to anesthesia Denies family history of Ovarian cancer Prostate cancer Myocardial infarction Colorectal cancer Social History Smoking Status: Never smoker Second Hand Exposure: Yes ( smoked); Hx Alcohol Use: No Hx Substance Use: No Preferred Language: Slovenian Communication Ability: Effective 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 Beliefs That Will Affect Care: None Current Living Situation: Spouse Other Information That Helps Us Care for You: No Feels Safe at Home: Yes Safety Concerns: Feels Safe At This Time Seatbelt Use: always Sunscreen Use: Yes Assistive Devices: Denture - Upper and Glasses Allergies Allergies Allergy/AdvReac Type Severity Reaction Status Date / Time chlordiazepoxide Allergy Intermediate HIVES Verified 02/11/21 12:43 latex Allergy Mild LOCAL Verified 02/11/21 12:43 DERMATITIS sulfamethoxazole AdvReac Mild nausea Verified 02/11/21 12:43 trimethoprim AdvReac Mild nausea Verified 02/11/21 12:43 Bactrim AdvReac Unknown nausea Verified 02/23/18 10:28 Home Meds Home Medications Medication Instructions Recorded Confirmed fluticasone propionate [Flonase 2 spray INTRANASAL HS 06/23/19 02/11/21 Allergy Relief] tamoxifen 20 mg PO QAM 06/23/19 02/11/21 cyanocobalamin (vitamin B-12) 1,000 mcg PO QAM 02/11/21 02/11/21 [Vitamin B-12] ezetimibe 10 mg PO QAM 02/11/21 02/11/21 omeprazole 20 mg PO DAILYBB 02/11/21 02/11/21 Previous Rx's Medication Instructions Recorded hydrochlorothiazide 25 mg tablet 25 mg PO QAM #90 tab 12/01/20 lisinopril 10 mg tablet 10 mg PO QAM #90 tab 12/01/20 tramadol 50 mg tablet See Rx Instructions PO Q6H PRN #25 02/08/21 tab lidocaine 1 patch TOP DAILY PRN #15 ea 02/11/21 prednisone 50 mg PO DAILY 4 Days #4 tab 02/11/21 tramadol 50 mg PO Q8H PRN 3 Days #9 tab 02/11/21 Results & Data (ED) Vital Signs Vital Signs - 24 hr 02/11/21 17:42 02/11/21 19:02 Temperature 37.0 C Temperature Source Temporal Artery Scan Pulse Rate 90 90 Pulse Rhythm Regular Respiratory Rate 20 20 Respiratory Effort / Characteristics Non-Labored Respiratory Depth Normal Blood Pressure 118/75 Blood Pressure Mean 89 Blood Pressure Position Sitting Pulse Oximetry 94 94 Oxygen Delivery Method Room Air Room Air Sepsis Recent Fever Within 48 Hours No Sepsis New/Unexplained Change in Mental Status No Sepsis Action Taken by Nursing No Action Required Home Medications Current Medication List: was personally reviewed by me Laboratory Data Attestation: I reviewed the patient's lab results. Result diagrams: 02/12/21 01:05 02/12/21 01:05 Lab Results 02/11/21 02/11/21 02/11/21 Range/Units 19:06 19:06 19:06 WBC 13.67 H (4.8-10.8) K/uL RBC 4.45 (4.2-5.4) M/uL Hgb 13.5 (12.0-16.0) g/dL POC Hgb (12.0-16.0) g/dl Hct 39.2 (37-47) % POC Hct (37-47) % MCV 88.1 (80-100) fL MCH 30.3 (25-34) pg MCHC 34.4 (32-36) g/dL RDW Std Deviation 44.5 (36.4-46.3) fL RDW Coeff of Brittany 13.8 (11.5-14.5) % Plt Count 335 (130-400) K/uL MPV 10.6 H (7.4-10.4) fL Immature Gran % (Auto) 0.3 % Neut % (Auto) 84.9 % Lymph % (Auto) 9.8 % Cherokee % (Auto) 4.8 % Eos % (Auto) 0.1 % Baso % (Auto) 0.1 % Neut # (Auto) 11.60 H (1.4-6.5) K/uL Lymph # (Auto) 1.34 (1.2-3.4) K/uL [place] # (Auto) 0.66 H (0.11-0.59) K/uL Eos # (Auto) 0.02 (0-0.5) K/uL Baso # (Auto) 0.01 (0-0.2) K/uL Immature Gran # (Auto) 0.04 H (0.00-0.02) K/uL PT (9.0-12.0) Seconds INR (0.9-1.1) APTT (21.0-31.0) Seconds PTT Ratio POC Sodium (135-144) mmol/L Sodium 127 L (136-145) mmol/L POC Potassium (3.3-5.0) mmol/L Potassium 3.6 (3.5-5.1) mmol/L POC Chloride (101-112) mmol/L Chloride 91 L (98-107) mmol/L Carbon Dioxide 30 (21-32) mmol/L POC Total CO2 (24-31) mmol/L Anion Gap 6.0 (3-11) POC Anion Gap (16-25) mmol/L POC BUN (7-18) mg/dl BUN 19 H (7-18) mg/dl Creatinine 1.04 (0.6-1.2) mg/dl POC Creatinine (0.6-1.3) mg/dl Est Cr Clr Drug Dosing 48.6 ml/min Est GFR ( Amer) 60.0 Est GFR (Non-Af Amer) 51.8 BUN/Creatinine Ratio 18.0 (10-20) Glucose 297 H (70-99) mg/dl POC Glucose (other) (70-99) mg/dl Osmolality 283 (280-300) mOsm/kg Calcium 9.1 (8.5-10.1) mg/dl POC Ioniz Calcium Bella (1.12-1.32) mmol/l Total Bilirubin 1.0 (0.2-1) mg/dl AST 25 (15-37) U/L ALT 33 (12-78) U/L Alkaline Phosphatase 98 (45-117) U/L Troponin I < 0.015 (0-0.045) ng/ml Total Protein 7.5 (6.4-8.2) gm/dl Albumin 2.8 L (3.4-5.0) gm/dl Globulin 4.7 H (2.5-4.0) gm/dl Albumin/Globulin Ratio 0.6 L (0.9-2) Lipase 78 (73-393) U/L Urine Osmolality (500-800) mOsm/kg Ur Random Sodium mmol/L COVID-19 Eval Order SARS-CoV-2 (PCR) (Negative) Influenza Type A (PCR) (Neg) Influenza Type B (PCR) (Neg) RSV (RT-PCR) (Neg) 02/11/21 02/11/21 02/11/21 Range/Units 19:10 19:10 19:10 WBC (4.8-10.8) K/uL RBC (4.2-5.4) M/uL Hgb (12.0-16.0) g/dL POC Hgb (12.0-16.0) g/dl Hct (37-47) % POC Hct (37-47) % MCV (80-100) fL MCH (25-34) pg MCHC (32-36) g/dL RDW Std Deviation (36.4-46.3) fL RDW Coeff of Brittany (11.5-14.5) % Plt Count (130-400) K/uL MPV (7.4-10.4) fL Immature Gran % (Auto) % Neut % (Auto) % Lymph % (Auto) % [place] % (Auto) % Eos % (Auto) % Baso % (Auto) % Neut # (Auto) (1.4-6.5) K/uL Lymph # (Auto) (1.2-3.4) K/uL [place] # (Auto) (0.11-0.59) K/uL Eos # (Auto) (0-0.5) K/uL Baso # (Auto) (0-0.2) K/uL Immature Gran # (Auto) (0.00-0.02) K/uL PT 10.8 (9.0-12.0) Seconds INR 1.1 (0.9-1.1) APTT 24.1 (21.0-31.0) Seconds PTT Ratio 0.9 POC Sodium (135-144) mmol/L Sodium (136-145) mmol/L POC Potassium (3.3-5.0) mmol/L Potassium (3.5-5.1) mmol/L POC Chloride (101-112) mmol/L Chloride (98-107) mmol/L Carbon Dioxide (21-32) mmol/L POC Total CO2 (24-31) mmol/L Anion Gap (3-11) POC Anion Gap (16-25) mmol/L POC BUN (7-18) mg/dl BUN (7-18) mg/dl Creatinine (0.6-1.2) mg/dl POC Creatinine (0.6-1.3) mg/dl Est Cr Clr Drug Dosing ml/min Est GFR ( Amer) Est GFR (Non-Af Amer) BUN/Creatinine Ratio (10-20) Glucose (70-99) mg/dl POC Glucose (other) (70-99) mg/dl Osmolality (280-300) mOsm/kg Calcium (8.5-10.1) mg/dl POC Ioniz Calcium Bella (1.12-1.32) mmol/l Total Bilirubin (0.2-1) mg/dl AST (15-37) U/L ALT (12-78) U/L Alkaline Phosphatase (45-117) U/L Troponin I (0-0.045) ng/ml Total Protein (6.4-8.2) gm/dl Albumin (3.4-5.0) gm/dl Globulin (2.5-4.0) gm/dl Albumin/Globulin Ratio (0.9-2) Lipase (73-393) U/L Urine Osmolality 383 L (500-800) mOsm/kg Ur Random Sodium 24 mmol/L COVID-19 Eval Order SARS-CoV-2 (PCR) (Negative) Influenza Type A (PCR) (Neg) Influenza Type B (PCR) (Neg) RSV (RT-PCR) (Neg) 02/11/21 02/11/21 02/11/21 Range/Units 19:15 20:25 20:25 WBC (4.8-10.8) K/uL RBC (4.2-5.4) M/uL Hgb (12.0-16.0) g/dL POC Hgb 13.9 (12.0-16.0) g/dl Hct (37-47) % POC Hct 41 (37-47) % MCV (80-100) fL MCH (25-34) pg MCHC (32-36) g/dL RDW Std Deviation (36.4-46.3) fL RDW Coeff of Brittany (11.5-14.5) % Plt Count (130-400) K/uL MPV (7.4-10.4) fL Immature Gran % (Auto) % Neut % (Auto) % Lymph % (Auto) % [place] % (Auto) % Eos % (Auto) % Baso % (Auto) % Neut # (Auto) (1.4-6.5) K/uL Lymph # (Auto) (1.2-3.4) K/uL [place] # (Auto) (0.11-0.59) K/uL Eos # (Auto) (0-0.5) K/uL Baso # (Auto) (0-0.2) K/uL Immature Gran # (Auto) (0.00-0.02) K/uL PT (9.0-12.0) Seconds INR (0.9-1.1) APTT (21.0-31.0) Seconds PTT Ratio POC Sodium 126 L (135-144) mmol/L Sodium (136-145) mmol/L POC Potassium 3.5 (3.3-5.0) mmol/L Potassium (3.5-5.1) mmol/L POC Chloride 89 L (101-112) mmol/L Chloride (98-107) mmol/L Carbon Dioxide (21-32) mmol/L POC Total CO2 29 (24-31) mmol/L Anion Gap (3-11) POC Anion Gap 13.0 L (16-25) mmol/L POC BUN 19 H (7-18) mg/dl BUN (7-18) mg/dl Creatinine (0.6-1.2) mg/dl POC Creatinine 0.9 (0.6-1.3) mg/dl Est Cr Clr Drug Dosing ml/min Est GFR ( Amer) Est GFR (Non-Af Amer) BUN/Creatinine Ratio (10-20) Glucose (70-99) mg/dl POC Glucose (other) 305 H (70-99) mg/dl Osmolality (280-300) mOsm/kg Calcium (8.5-10.1) mg/dl POC Ioniz Calcium Bella 1.16 (1.12-1.32) mmol/l Total Bilirubin (0.2-1) mg/dl AST (15-37) U/L ALT (12-78) U/L Alkaline Phosphatase (45-117) U/L Troponin I (0-0.045) ng/ml Total Protein (6.4-8.2) gm/dl Albumin (3.4-5.0) gm/dl Globulin (2.5-4.0) gm/dl Albumin/Globulin Ratio (0.9-2) Lipase (73-393) U/L Urine Osmolality (500-800) mOsm/kg Ur Random Sodium mmol/L COVID-19 Eval Order CovFluRsv at [facility] SARS-CoV-2 (PCR) NEGATIVE (Negative) Influenza Type A (PCR) Negative (Neg) Influenza Type B (PCR) Negative (Neg) RSV (RT-PCR) Negative (Neg) Administered Medications Fluticasone Propionate (Fluticasone Propionate Na Spr 16 Gm Btl) 2 sprays NA HS [facility] Stop: 03/13/21 22:58 Last Admin: 02/11/21 23:24 Dose: 2 sprays Documented by: [id number] Heparin Sodium/Dextrose (Heparin Sodium/Dextrose) 25,000 units in 500 mls @ 24 mls/hr IV .[id number] [facility]; Protocol Stop: 03/13/21 19:59 Last Titration: 02/12/21 06:52 Dose: 1,250 units/hr, 25 mls/hr Documented by: [id number] Cosigned by: [id number] Titration: 02/12/21 03:10 Dose: 1,250 units/hr, 25 mls/hr Documented by: [id number] Cosigned by: [id number] Admin: 02/11/21 20:44 Dose: 1,200 units/hr, 24 mls/hr Documented by: [id number] Cosigned by: [id number] Miscellaneous (Remove Lidoderm Patch) 1 ea N/A DAILY@2100 [facility] Stop: 03/13/21 22:58 Last Admin: 02/11/21 23:24 Dose: 1 ea Documented by: [id number] [facility]oprazole S[facility] ([facility] 40 Mg Tab) [facility]: 03/14/21 06:29 Last Admin: 02/12/21 06:08 Dose: 40 mg Documented by: [id number] Discontinued Medications Aspirin (Aspirin Chew 324 Mg) 324 mg PO NOW [facility] Stop: 02/11/21 18:59 Last Admin: 02/11/21 19:07 Dose: 324 mg Documented by: [id number] Heparin Sodium (Porcine) (Heparin Sod (Porcine) 1000 Unit/Ml 10 Ml Vial) Confirm Administered Dose 10,000 units .ROUTE .STK-MED ONE Stop: 02/11/21 20:39 Last Admin: 02/11/21 20:45 Dose: 5,000 units Documented by: [id number] Cosigned by: [id number] Heparin Sodium/Dextrose (Heparin Iv Standard With Bolus) 1 ea IV NOW STA; Protocol Stop: 02/11/21 19:55 Last Admin: 02/11/21 20:43 Dose: 1 ea Documented by: [id number] Sodium Chloride (Nss 1000ml) 500 mls @ 999 mls/hr IV .Q31M ONE Stop: 02/11/21 20:21 Last Infusion: 02/11/21 23:01 Dose: 0 mls/hr Documented by: [id number] Admin: 02/11/21 20:45 Dose: 999 mls/hr Documented by: [id number] Ioversol (Optiray 350 500ml) 117 ml IV ONCE ONE Stop: 02/11/21 21:48 Last Admin: 02/11/21 21:48 Dose: 117 ml Documented by: [id number] Imaging Data Radiologist's Impression: Chest X-Ray 02/11/21 18:52 XR chest 1V portable CLINICAL HISTORY: Atypical chest pain COMPARISON STUDY: 02/17/2018 FINDINGS: The heart is borderline enlarged. There is no failure. There are bibasilar opacity statistically representing subsegmental atelectasis. There is no failure. There is a suspected T12 sclerotic lesion. This remains unchanged from the prior study[ IMPRESSION: Subsegmental atelectatic changes at the lung bases. ACT 112: Negative or not required by law. Electronically signed by: Tanner Elizondo M.D. 02/11/2021 7:03 PM Discharge Plan Visit Data Chief Complaint: Abnormal Labs/Diagnostic Testing Stated Complaint: NECK PAIN ED Provider: Isak Randolph Discharge Problem: Abnormal EKG, Back pain, Anginal equivalent, Acute hyponatremia Patient Disposition: Admitted As Inpatient Condition: Good Discharge Instructions Interventions: ED Discharge Assessment Last Done: 02/11/21 23:00 Discharge Problem: Back pain Qualifiers: Back pain location: thoracic back pain Chronicity: acute Back pain laterality: bilateral Qualified Code(s): M54.6 - Pain in thoracic spine
[2021-02-11 19:28] LABS: iSTAT Creatinine 0.9 mg/dl (0.6-1.3); iSTAT Hemoglobin 13.9 g/dl (12.0-16.0); iSTAT Ionized Calcium 1.16 mmol/l (1.12-1.32); iSTAT Potassium 3.5 mmol/L (3.3-5.0)
[2021-02-11 19:29] LABS: Basophils # (auto) 0.01 K/uL (0-0.2); Basophils % (auto) 0.1 %; Eosinophils # (auto) 0.02 K/uL (0-0.5); Eosinophils % (auto) 0.1 %; Hematocrit (blood only) 39.2 % (37-47); Hemoglobin 13.5 g/dL (12.0-16.0); Immature Granulocytes # (auto) 0.04 K/uL (0.00-0.02); Immature Granulocytes % (auto) 0.3 %; Lymphocytes # (auto) 1.34 K/uL (1.2-3.4); Lymphocytes % (auto) 9.8 %; Mean Corpuscular Hemoglobin 30.3 pg (25-34); Mean Corpuscular Hgb Conc 34.4 g/dL (32-36); Mean Corpuscular Volume 88.1 fL (80-100); Mean Platelet Volume 10.6 fL (7.4-10.4); Monocytes # (auto) 0.66 K/uL (0.11-0.59); Monocytes % (auto) 4.8 %; Neutrophils % (auto) 84.9 %; Platelet Count 335 K/uL (130-400); RDW Coefficient of Variation 13.8 % (11.5-14.5); RDW Standard Deviation 44.5 fL (36.4-46.3); Red Blood Count 4.45 M/uL (4.2-5.4); White Blood Count 13.67 K/uL (4.8-10.8)
[2021-02-11 19:34] LABS: INR 1.1 (0.9-1.1); Partial Thromboplastin Ratio 0.9; Partial Thromboplastin Time 24.1 Seconds (21.0-31.0); Prothrombin Time 10.8 Seconds (9.0-12.0)
[2021-02-11 19:47] LABS: Alanine Aminotransferase 33 U/L (12-78); Albumin Level 2.8 gm/dl (3.4-5.0); Aspartate Aminotransferase 25 U/L (15-37); Blood Urea Nitrogen 19 mg/dl (7-18); Calcium 9.1 mg/dl (8.5-10.1); Carbon Dioxide 30 mmol/L (21-32); Chloride 91 mmol/L (98-107); Creatinine Clr Calc Pharmacy 48.6 ml/min; Est GFR (Non-African American) 51.8; Glucose 297 mg/dl (70-99); Lipase 78 U/L (73-393); Potassium 3.6 mmol/L (3.5-5.1); Sodium 127 mmol/L (136-145)
[2021-02-11] MEDS ORDERED: SODIUM CHLORIDE 0.9% 1000ML 500 ML IV ONE (19:51)
[2021-02-11 19:52] LABS: Albumin Globulin Ratio 0.6 (0.9-2); Alkaline Phosphatase 98 U/L (45-117); Globulin 4.7 gm/dl (2.5-4.0); Total Protein 7.5 gm/dl (6.4-8.2); Troponin I < 0.015 ng/ml (0-0.045)
[2021-02-11] MEDS ORDERED: Heparin IV Adult Wt-Based Standard WITH Bolus Protocol IV STA (19:54)
[2021-02-11] MEDS ORDERED: HEPARIN SODIUM/DEXTROSE 25,000 UNITS/500 ML BAG IV SCH (20:00)
[2021-02-11] MEDS ORDERED: HEPARIN SOD (PORCINE) 1000 UNIT/ML ONE (20:38)
--- NOTE | 2021-02-11 21:27 | History & Physical Report ---
Date of Service February 11, 2021 Assessment & Plan Admission and Anticipated Discharge Date Admission Date: 75 yo F w/ pMHx. 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 PE vs. MSK pain heart score 4 (moderate risk) EKG w/ ST changes in inferior leads risk factors for PE include prior Tamoxifen and hx. carcinoma in situ hemodynamically stable at this time - trend troponin - Heparin w/ bolus - CTA chest to rule out PE was found to have right (middle lower) PE and increased right heart w/ RV/LV ratio - 1 - Duplex ordered - no DVT seen - ECHO ordered - consult cardiology - Dr. Marte aware and no rec. for heart alert while in ER Hyponatremia(127), w/ hyperglycemia in the setting of HCTZ use and appears euvolemic on exam given hx. of carcinoma in situ and sclerotic bone lesion this may represent SIADH corrected for hyperglycemia Na is 130 (Borges) or 132 (Wild) U osm low at 338 - held HCTZ - hold fluids for now - recheck with AM labs Diabetes (untreated), bsg in ER 297 - sliding scale - 10 BID long acting - check A1c w/ AM labs Leukocytosis w/o fever, tachycardia hypotension denies urinary symptoms, respiratory symptoms; unclear if taking prednisone prior to admission likely leukemoid reaction due to stress, continue to monitor - CXR - with possible silhouette sign on left heart border, CT will further evaluate - AM CBC sclerotic lesion on CXR, seen on prior imaging from PCP w/ hx. of carcinoma in situ - plan for outpatient PET to further evaluate swelling of hands and feet, unclear etiology, improved; potentially due to LAD?? - continue to monitor - no LAD seen on CT per [facility] - inguinal LAD seen on duplex HTN - continue home lisinopril - held HCTZ Reflux - continue home Omeprazole Hx. Lobular carcinoma in situ s/p excision - continue Tamoxifen Code: full Diet: CC DMII DVT prophylaxis: Heparin History of Present Illness Chief Complaint: shoulder pain Primary Care Provider: Jewell Johnson MD Marilyn Yepez is here for shoulder pain and abnormal labs. She has had 2 weeks of 10/10 constant shoulder pain that is worse with lifting, walking, and turning. She has some improvement with ibuprofen and Tramadol. She is currently in 2/10 pain with improvement after getting medication and nitro in the ER. She has never had pain like this before. She does not note any paresthesias or muscle weakness in the hands. She had also noted some wrist, hand and feet swelling that has also improved. She had an injury to her ankle and it has been chronically swollen since. She noted that her hands were swollen to the point of not being able to close her hands. She has diabetes but did not tolerate medication so she has been intermittently monitoring her sugar at home. She notes that her high blood sugars are normally 130's but typically is in the 120's or 1teens. She has not had any low blood sugars. When asked about the prednisone 50X4 days she said she was not taking that and had potentially 10 days ago. Allergies Allergy/AdvReac Type Severity Reaction Status Date / Time chlordiazepoxide Allergy Intermediate HIVES Verified 02/11/21 12:43 latex Allergy Mild LOCAL Verified 02/11/21 12:43 DERMATITIS sulfamethoxazole AdvReac Mild nausea Verified 02/11/21 12:43 trimethoprim AdvReac Mild nausea Verified 02/11/21 12:43 Bactrim AdvReac Unknown nausea Verified 02/23/18 10:28 Home Medications Medication Instructions Recorded Confirmed Type fluticasone propionate [Flonase 2 spray INTRANASAL HS 06/23/19 02/11/21 History Allergy Relief] tamoxifen 20 mg PO QAM 06/23/19 02/11/21 History hydrochlorothiazide 25 mg tablet 25 mg PO QAM #90 tab 12/01/20 02/11/21 Rx lisinopril 10 mg tablet 10 mg PO QAM #90 tab 12/01/20 02/11/21 Rx tramadol 50 mg tablet See Rx Instructions PO Q6H PRN #25 02/08/21 02/11/21 Rx tab cyanocobalamin (vitamin B-12) 1,000 mcg PO QAM 02/11/21 02/11/21 History [Vitamin B-12] ezetimibe 10 mg PO QAM 02/11/21 02/11/21 History lidocaine 1 patch TOP DAILY PRN #15 ea 02/11/21 02/11/21 Rx omeprazole 20 mg PO DAILYBB 02/11/21 02/11/21 History prednisone 50 mg PO DAILY 4 Days #4 tab 02/11/21 02/11/21 Rx tramadol 50 mg PO Q8H PRN 3 Days #9 tab 02/11/21 02/11/21 Rx Past Med/Surg History Medical History Colitis GERD (gastroesophageal reflux disease) GI (gastrointestinal bleed) History of colon polyps Hyperlipidemia Hypertension Ischemic colitis Left knee pain Migraine Surgical History History of bilateral cataract extraction History of colonoscopy History of esophagogastroduodenoscopy (EGD) History of left breast biopsy x3--benign, pt states she takes tamoxifen as a preventative for breast cancer History of total hysterectomy with bilateral salpingo-oophorectomy (BSO) Family History Mother Family history of diabetes mellitus Family/Other Family hx of colon cancer granddaughter Sister Breast cancer Other No family history of adverse response to anesthesia Denies family history of Ovarian cancer Prostate cancer Myocardial infarction Colorectal cancer Social History Smoking Status: Never smoker Second Hand Exposure: Yes ( smoked); Hx Alcohol Use: No Hx Substance Use: No Preferred Language: Kosovan Communication Ability: Effective Shallot Packer Required: No Beliefs That Will Affect Care: None Current Living Situation: Spouse Other Information That Helps Us Care for You: No Feels Safe at Home: Yes Safety Concerns: Feels Safe At This Time Seatbelt Use: always Sunscreen Use: Yes Assistive Devices: Denture - Upper and Glasses Review of Systems Review of Systems: Constitutional: denies fevers, chills, vomiting, nausea, night sweats admits weight loss Head: denies trauma, LOC, headache, confusion, lightheadedness, vision changes Neuro: denies syncope, presyncope, slurring of speech, focal weakness, numbness, tingling ENT: denies rhinorrhea, stuffiness, sneezing admits sore throat Cadiac: denies chest pain, palpitations, PND, RODRIGUEZ, admits leg edema Pulm.: denies cough, shortness of breath GI: denies diarrhea, abdominal pain, admits constipation : denies urgency, frequency, pain Physical Exam Constitutional: WD/WN, vitals as above Eyes: PERRL, conjunctivae normal, anicteric sclerae ENMT: external ear and nose normal, oropharynx normal Neck: normal visual inspection - no clear JVD seen on exam Respiratory: normal respiratory effort, lungs clear to auscultation Cardiovascular: RRR, no murmur, no edema Gastrointestinal (Abdomen): normal bowel sounds, soft, nontender, no hepatosplenomegaly Musculoskeletal: - no pain on AC joint or bicipital groove - Negative scarf, empty can, speeds test of right shoulder Skin: no rashes, warm and dry Neurologic: no focal motor deficits Psychiatric: Orientation: alert Eye Contact: good eye contact Speech: normal rate/rhythm/volume of speech Results & Data Results & Data ([facility]) Vital Signs (Past 12 Hours) Vital Signs Temp Pulse Resp BP Pulse Ox 02/11/21 19:02 90 20 94 02/11/21 17:42 37.0 C 90 20 118/75 94 CBC Results Results Complete Blood Count Results: RBC 4.22 M/uL (4.2-5.4) 02/12/21 WBC 13.60 K/uL (4.8-10.8) H 02/12/21 Hgb 12.9 g/dL (12.0-16.0) 02/12/21 Hct 37.2 % (37-47) 02/12/21 Plt Count 299 K/uL (130-400) 02/12/21 Chemistry (BMP) Results BMP Results: Sodium 133 mmol/L (136-145) L 02/12/21 Potassium 3.6 mmol/L (3.5-5.1) 02/12/21 Chloride 96 mmol/L (98-107) L 02/12/21 BUN 17 mg/dl (7-18) 02/12/21 Creatinine 0.82 mg/dl (0.6-1.2) 02/12/21 Glucose 192 mg/dl (70-99) H 02/12/21 Code Status & VTE Plan VTE Prophylaxis Plan VTE Prophylaxis will be ordered: Yes Supervising Physician Co-Signing Physician Notes Attending addendum: I have physically seen this patient, have supervised the medical residents activities, and agree with the H&P unless as otherwise noted. Assessment and Plan: Pulmonary embolism right middle lobe and right lower lobe/right heart strain- Lower extremity venous Dopplers negative for DVT Heparin IV standard protocol with bolus Venous Dopplers negative for DVT Consult pulmonology Abnormal EKG/ST elevations in inferior leads- Troponin is normal Cardiology aware The patient will be admitted to telemetry for serial cardiac enzymes, serial EKG's, cardiac rhythm monitoring and a 2-D echocardiogram with Dopplers. May be secondary to stress of PEs. Consult cardiology Hyponatremia- Sodium 127 Urine osmolality 388 Serum osmolality pending Hold HCTZ as possible primary cause Hold IV fluids Repeat laboratories in a.m. Remaining orders and notations as noted Resident Activity Tracking Resident Involvement: Resident Care Provided Care Provided: Adult Hospital Medicine
[2021-02-11 21:42] LABS: Influenza A virus by PCR Negative (Neg); Influenza B virus by PCR Negative (Neg); RSV by PCR Negative (Neg); SARS CoV2 RNA(COVID-19) InHosp NEGATIVE (Negative)
[2021-02-11] MEDS ORDERED: OPTIRAY 350 500ml IV ONE (21:47)
[2021-02-11] MEDS ORDERED: ACETAMINOPHEN 325 MG TAB PO PRN (22:59)
[2021-02-11] MEDS ORDERED: GLUCOSE 40% GEL 15 GM TUBE PO PRN (22:59)
[2021-02-11] MEDS ORDERED: POLYETHYLENE (MIRALAX) 17 GM PACK PO PRN (22:59)
[2021-02-11] MEDS ORDERED: GLUCAGON FOR INJ 1 MG VIAL SQ PRN (22:59)
[2021-02-11] MEDS ORDERED: GLUCOSE 10 TABS/TUBE PO PRN (22:59)
[2021-02-11] MEDS ORDERED: DEXTROSE 50% 50 ML SYRINGE IV PRN (22:59)
[2021-02-11] MEDS ORDERED: LIDOCAINE 5% 1 PATCH TD PRN (22:59)
[2021-02-11] MEDS ORDERED: traMADol HCL 50 MG TABLET PO PRN (22:59)
[2021-02-11] MEDS ORDERED: FLUTICASONE PROPIONATE NA SPR 16 GM BTL SCH (22:59)
[2021-02-11] MEDS ORDERED: CARBOHYDRATES FOR HYPOGLYCEMIA PO PRN (22:59)
[2021-02-12 01:18] LABS: Basophils # (auto) 0.02 K/uL (0-0.2); Basophils % (auto) 0.1 %; Hematocrit (blood only) 37.2 % (37-47); Hemoglobin 12.9 g/dL (12.0-16.0); Immature Granulocytes # (auto) 0.05 K/uL (0.00-0.02); Immature Granulocytes % (auto) 0.4 %; Lymphocytes # (auto) 1.58 K/uL (1.2-3.4); Lymphocytes % (auto) 11.6 %; Mean Corpuscular Hemoglobin 30.6 pg (25-34); Mean Corpuscular Hgb Conc 34.7 g/dL (32-36); Mean Corpuscular Volume 88.2 fL (80-100); Mean Platelet Volume 10.2 fL (7.4-10.4); Monocytes # (auto) 1.09 K/uL (0.11-0.59); Neutrophils # (auto) 10.86 K/uL (1.4-6.5); Neutrophils % (auto) 79.9 %; Platelet Count 299 K/uL (130-400); RDW Coefficient of Variation 13.6 % (11.5-14.5); RDW Standard Deviation 44.1 fL (36.4-46.3); Red Blood Count 4.22 M/uL (4.2-5.4)
[2021-02-12 01:36] LABS: BUN Creatinine Ratio 20.3 (10-20); Blood Urea Nitrogen 17 mg/dl (7-18); Calcium 9.2 mg/dl (8.5-10.1); Carbon Dioxide 31 mmol/L (21-32); Chloride 96 mmol/L (98-107); Creatinine Clr Calc Pharmacy 60.8 ml/min; Glucose 192 mg/dl (70-99); Potassium 3.6 mmol/L (3.5-5.1); Sodium 133 mmol/L (136-145)
[2021-02-12 01:43] LABS: Troponin I < 0.015 ng/ml (0-0.045)
[2021-02-12 03:04] LABS: Partial Thromboplastin Ratio 1.7; Partial Thromboplastin Time 43.9 Seconds (21.0-31.0)
--- NOTE | 2021-02-12 04:57 | Billing Data ---
Date of Service February 12, 2021 Coding Level of Care Code 05294 Initial Inpt Care Lvl 3
[2021-02-12 06:04] LABS: Estimated Average Glucose 166 mg/dl; Hemoglobin A1C 7.4 % (4.5-5.6)
[2021-02-12] MEDS ORDERED: PANTOprazole 40 MG TAB PO SCH (06:30)
--- NOTE | 2021-02-12 07:12 | Ultrasound Report ---
BILATERAL LOWER EXTREMITY VENOUS DOPPLER HISTORY: Lower extension of the swelling. concern for DVT COMPARISON STUDY: None. FINDINGS: There is normal compressibility, flow, and augmentation within the bilateral lower extremit y deep venous systems. Scattered nonspecific echogenic foci within the subcutaneous fat of the medial thighs bilaterally. These could represent areas of fat necrosis or small lipomas. A right inguinal l ymph node which measure subcentimeter in short axis diameter. IMPRESSION: 1. No DVT within the right or left lower extremity. 2. Scattered nonspecific echogenic foci within the subcutaneous fat of the medial thighs bilaterally. These could represent areas of fat necrosis or small lipomas. ACT 112: Negative or not required by law. Electronically signed by: Frederick Oneil M.D. 02/12/2021 7:11 AM
--- NOTE | 2021-02-12 07:55 | CT Scan Report ---
CT ANGIOGRAM OF THE CHEST CLINICAL HISTORY: Atypical chest pain. COMPARISON STUDY: Chest x-ray dated 02/11/2021. Abdominal CT dated 07/20/2014. TECHNIQUE: Following the IV administration of 117 cc of Optiray 320, CT angiogram of the chest was pe rformed from the upper abdomen to the thoracic inlet utilizing the pulmonary embolus protocol. Images are reviewed in the axial, sagittal, and coronal planes. 3-D MIPS images are created and assessed. I V contrast was administered without complication. A dose lowering technique was utilized adhering to the principles of ALARA. CT DOSE: 415.72 mGy.cm FINDINGS: Thyroid: Imaged portions of the thyroid gland are normal in size and attenuation. A 13 mm nodule is n oted in the right lobe. Thoracic aorta: There is mild atherosclerotic calcification of the thoracic aorta, which is normal in caliber and demonstrates standard 3-vessel arch anatomy. No dissection is seen. Pulmonary vasculature: The pulmonary trunk is normal in caliber. There is pulmonary embolus within th e distal right main pulmonary artery. This extends into the right middle and right lower lobe pulmona ry arteries.. Heart: The heart is normal in size and without pericardial effusion. Lungs and pleural spaces: Evaluation of the lung parenchyma is compromised by motion artifact. There is bibasilar scarring/atelectasis. No airspace consolidation is seen typical for pneumonia and there is no pleural effusion. The trachea and central airways are clear. A calcified granuloma is noted in the right middle lobe. Question a 9 mm left lower lobe pulmonary nodule along the posterior heart bor vera seen on image #91. Mediastinum: There is no mediastinal lymphadenopathy. Sangeeta: Clear. Axillae: There is no axillary lymphadenopathy. Upper abdomen: Partially visualized upper abdominal viscera is within normal limits. Skeletal structures: The skeletal structures are osteopenic. A 2.1 cm sclerotic lesion is seen in the body of T12. No additional osseous lesions are identified. IMPRESSION: 1. Right-sided pulmonary emboli as above. 2. There is no airspace consolidation typical for pneumonia or pleural effusion. 3. A 2.1 cm sclerotic lesion is seen in the body of T12. This may represent a bone island, but this h as significantly increased in size from a [address] when it measured 0.8 cm. Nuclear bone sca n could be considered for further assessment. 4. Question a 9 mm left lower lobe pulmonary nodule. This can be followed as per the Fleischner crite marika. See below. 5. Additional findings as above. Please refer to below summary of Fleischner criteria recommendations for follow-up of incidental CT n odules (Donny Naylor, Guidelines for management of small pulmonary nodules detected on CT scans: A sta tement from the Fleischner Society, Radiology 237: [phone].) SOLID NODULES Solitary nodule size: <6 mm * low risk patients: no follow-up needed * high risk patients: optional CT at 12 months Solitary nodule size: 6-8 mm * low risk patients: follow-up at 6-12 months, then consider further follow-up at 18-24 months * high risk patients: initial follow-up CT at 6-12 months and then at 18-24 months if no change Solitary nodule size: >8 mm * either low or high risk patients - consider follow-up CT at 3 months, and/or CT-PET, and/or biopsy Multiple nodules size: <6 mm * low risk patients: no routine follow-up * high risk patients: optional CT at 12 months Multiple nodules size: 6-8 mm * low risk patients: follow-up at 3-6 months, then consider further follow-up at 18-24 months * high risk patients: follow-up at 3-6 months, then at 18-24 months if no change Multiple nodules size: >8 mm * low risk patients: follow-up at 3-6 months, then consider further follow-up at 18-24 months * high risk patients: follow-up at 3-6 months, then at 18-24 months if no change Note: newly detected indeterminate nodule in persons 35 years of age or older. * low risk patients: minimal or absent history of smoking and/or other known risk factors * high risk patients: history of smoking or of other known risk factors (e.g. first degree relative with lung cancer, or exposure to asbestos, radon, uranium) * if a nodule up to 8 mm is partly solid or is ground glass further follow-up is required after 24 m onths to exclude possible slow growing adenocarcinoma (DEREJE) SUBSOLID NODULES Solitary pure ground-glass nodule * nodule size <6 mm - no CT follow-up required * nodule size >=6 mm - follow-up CT at 6-12 months, then every 2 years until 5 years Solitary part-solid nodule * nodule size <6 mm - no CT follow-up required * nodule size >=6 mm - follow-up CT at 3-6 months. If unchanged, and solid component remains <6 mm, then annual follow-up for 5 years Multiple subsolid nodules * nodule size <6 mm - follow-up CT at 3-6 months, consider further follow-up at 2 and 4 years if sta ble * nodule size >=6 mm - follow-up CT at 3-6 months, subsequent management based on the most suspiciou s nodule(s) ACT 112: Positive. There are findings on this exam that require communication between the performing entity and the patient following Patient Test Result Information Act ([place] Act 112) guidelines. Electronically signed by: Brennan Rodriguez M.D. 02/12/2021 7:53 AM
[2021-02-12] MEDS: INSULIN ASPART 100 UNITS/ML 3 ML PEN SC SCH ×2 (08:30→12:12)
[2021-02-12] MEDS ORDERED: lisinopril 10 MG TAB PO SCH (09:00)
[2021-02-12] MEDS ORDERED: TAMOXIFEN CITRATE 10 MG TABLET PO SCH (09:00)
[2021-02-12] MEDS ORDERED: INSULIN GLARGINE SOLOSTAR 100 UNITS/ML 3 ML PEN SC SCH (09:00)
[2021-02-12] MEDS ORDERED: ASPIRIN 81 MG ECTAB PO SCH (09:00)
--- NOTE | 2021-02-12 09:07 | Hospitalist Progress Note ---
Date of Service February 12, 2021 Assessment & Plan Admission and Anticipated Discharge Date Admission Date: February 11, 2021 Supervising Physician Co-Signing Physician Notes Attending attestation Pt seen and examined in concert with Dr. Pack. In agreement with the documented findings as noted in the resident documentation with any exceptions or additions as noted here. Improved but persistent motor related dorsalgia and right shoulder pain which can radiate to the neck. May have increased lifting/carrying of 18lb grandchild of late. On examination, S1/S2 nl RRR no MCG. CTAB. Abd NT/ND BS+ve. RUE examination w/ mildly +ve AC joint compression and RC pain with ext rotation and empty can. Pulmonary embolism - renal function should be able to handle DOAC, would tr ansition and follow with hematology. Right shoulder pain - cardiology consultation - if CV evaluation WNL, would consider XR shoulder to r/o OA and ?injection which could be performed outpatient Hyponatremia - significantly improved with holding HCTZ, hydration DMII - Goal of < 9%, ideally ~7-8%, which is where she is - counseling re: diet and exercise. Continue present glucose control, consider discharge on metformin 500mg daily. Remaining orders and notations as noted Results & Data Results & Data ([facility]) Vital Signs (Past 12 Hours) Vital Signs Temp Pulse Pulse Resp BP BP Pulse Ox 02/12/21 07:43 36.8 C 93 H 20 151/78 H 94 02/12/21 07:03 85 02/12/21 03:12 36.6 C 77 16 121/71 93 02/11/21 22:45 36.5 C 87 20 150/88 H 93 Pulse Ox 02/12/21 07:43 02/12/21 07:03 02/12/21 03:12 02/11/21 22:45 93
[2021-02-12 09:33] LABS: Partial Thromboplastin Ratio 1.4; Partial Thromboplastin Time 36.3 Seconds (21.0-31.0)
[2021-02-12] MEDS ORDERED: POTASSIUM CHLORIDE CRTAB 20 MEQ TABCR PO STA (09:43)
[2021-02-12] MEDS ORDERED: HEPARIN IV BOLUS 3,000 UNITS in SYRINGE 0 ML IV ONE (10:05)
[2021-02-12] MEDS ORDERED: APIXABAN 5 MG TABLET PO SCH (10:15)
--- NOTE | 2021-02-12 10:58 | XCELERA ---
[id number]
--- NOTE | 2021-02-12 13:34 | XRay Report ---
LEFT SHOULDER 3 VIEWS CLINICAL HISTORY: Left shoulder pain. FINDINGS: 3 views of the left shoulder are obtained. No prior studies are available for comparison at the time of dictation. The skeletal structures are osteopenic. There is no radiographic evidence of left shoulder fracture or dislocation. Productive degenerative change is seen at the acromioclavicula r joint. The glenohumeral articulation is preserved. The overlying soft tissues are normal as imaged. The visualized left lung parenchyma appears clear. Degenerative change is noted in the partially maya ged thoracic spine. IMPRESSION: No acute bony abnormality is identified. Electronically signed by: Brennan Rodriguez M.D. 02/12/2021 1:33 PM
--- NOTE | 2021-02-12 13:37 | XRay Report ---
XR shoulder RT min 2V routine CLINICAL HISTORY: Shoulder pain COMPARISON: None. DISCUSSION: No acute fractures or dislocations are visualized. There are no visible periarticular michael cifications. There are minor degenerative changes within the AC joint. No destructive lesions are vis ualized IMPRESSION: 1. No acute fractures or dislocations 2. Minor AC joint degenerative change ACT 112: Negative or not required by law. Electronically signed by: Tanner Elizondo M.D. 02/12/2021 1:35 PM
--- NOTE | 2021-02-12 14:52 | Discharge Summary ---
Date of Service February 12, 2021 Admission HPI Per Admitting Provider Marilyn Yepez is here for shoulder pain and abnormal labs. She has had 2 weeks of 10/10 constant shoulder pain that is worse with lifting, walking, and turning. She has some improvement with ibuprofen and Tramadol. She is currently in 2/10 pain with improvement after getting medication and nitro in the ER. She has never had pain like this before. She does not note any paresthesias or muscle weakness in the hands. She had also noted some wrist, hand and feet swelling that has also improved. She had an injury to her ankle and it has been chronically swollen since. She noted that her hands were swollen to the point of not being able to close her hands. She has diabetes but did not tolerate medication so she has been intermittently monitoring her sugar at home. She notes that her high blood sugars are normally 130's but typically is in the 120's or 1teens. She has not had any low blood sugars. When asked about the prednisone 50X4 days she said she was not taking that and had potentially 10 days ago. Admission Exam Per Admitting Provider Constitutional: WD/WN, vitals as above Eyes: PERRL, conjunctivae normal, anicteric sclerae ENMT: external ear and nose normal, oropharynx normal Neck: normal visual inspection - no clear JVD seen on exam Respiratory: normal respiratory effort, lungs clear to auscultation Cardiovascular: RRR, no murmur, no edema Gastrointestinal (Abdomen): normal bowel sounds, soft, nontender, no hepatosplenomegaly Musculoskeletal: - no pain on AC joint or bicipital groove - Negative scarf, empty can, speeds test of right shoulder Skin: no rashes, warm and dry Neurologic: no focal motor deficits Psychiatric: Orientation: alert Eye Contact: good eye contact Speech: normal rate/rhythm/volume of speech Principal Diagnosis shoulder pain, pulmonary embolus Discharge Exam Constitutional: elderly, in no apparent distress, sitting comfortably in bed. Eyes: EOMI, pupils equal and reactive bilaterally, no scleral icterus Cardiac: RRR, no murmurs, gallops or rubs. Normal S1, S2 Pulm: CTA BL, no wheezes, rhonchi, crackles or rubs, moving air well throughout both lungs Abd: soft, nontender, nondistended, normal bowel sounds, no rebound or guarding Extremities: 2+ peripheral pulses, no edema Neuro: no focal deficits, moving all 4 limbs, A&Ox3 [place] exam: full ROM, sensation intact, negative empty can test, negative lift off test, strength 5/5 with some nondescript pain throughout multiple movements Discharge Data Allergies Allergy/AdvReac Type Severity Reaction Status Date / Time chlordiazepoxide Allergy Intermediate HIVES Verified 02/11/21 12:43 latex Allergy Mild LOCAL Verified 02/11/21 12:43 DERMATITIS sulfamethoxazole AdvReac Mild nausea Verified 02/11/21 12:43 trimethoprim AdvReac Mild nausea Verified 02/11/21 12:43 Bactrim AdvReac Unknown nausea Verified 02/23/18 10:28 Consultations 02/11/21 19:20 Consult Cardiology Stat 02/11/21 19:55 ED Decision to Admit Stat Ordered Studies 02/11/21 21:19 CT angio chest PE protocol Urgent 02/11/21 22:59 US venous doppler LE BI Routine Hospital Course (1) Pulmonary embolus: 75 yo F with hx intraductal lobular carcinoma s/p lumpectomy and tx with tamoxifen admitted to hospital for 2 weeks of ongoing shoulder pain with concern for ACS etiology. Shoulder pain: cardiac workup negative. most likely mixed muscular and skeletal etiology.xrays of shoulders bilaterally showing mild arthritis of AC joint. complaining of continued uncontrolled pain with tylenol and tramadol. sent home with naproxen 250 mg BID x 7 days. Would most likely improve with physical therapy to strengthen shoulder and upper back muscles. Hyponatremia: greatly improved with removal of HCTZ. consider switching to alternate antihypertensive medication going forward. Na 133 on discharge. Pulmonary embolus: found on CTA chest. likely secondary to breast cancer/tamoxifen. would advise continuing PET scan outpatient. Will need follow up with Dr. Evangelista for cancer dx assessment and blood work follow up. Placed on heparin drip inpatient, converted to eliquis 10 mg bid at discharge, sent home with scripts for 10 mg bid x 7 days, 5 mg bid following. DM: A1c 7.3. technically at goal <9, discussed benefits of metformin to help prevent future heart attacks and strokes, as well as starting statin for same reasons. All other medical conditions managed by home regimen. (2) Acute hyponatremia: (3) Acute shoulder pain: Total Time Total Time Spent Total Time Spent (In Minutes): see attending attestation Discharge Plan Discharge Items Patient Disposition: Home - Self-Care Reason For Visit: SHOULDER PAIN, HYPONATREMIA Discharge Diagnosis: pulmonary embolism Condition on Discharge: Good Activity: Resume your previous activity Non-emergency contact: Primary Care Provider and Oncologist Call non-emergency contact if: you have any medication questions, your pain is not controlled and your pain is unusual for you Follow-up/Referrals: Jewell Nugent MD [Primary Care Provider] - (YOUR APPOINTMENT WITH JEWELL NUGENT IS ON TUESDAY, FEBRUARY 16, 2021 AT 11:30 AM PLEASE ARRIVE 15 MINUTES EARLY IF YOU ARE UNABLE TO KEEP THIS APPOINTMENT PLEASE CALL ) Diet: Carb Consistent or DM2 Addtl Attending Provider Instructions: You were evaluated in the hospital for shoulder pain that is likely secondary to arthritis in your shoulders. Doing physical therapy, stretches and maybe getting an injection in your shoulder can help control the pain. During your workup, we found a blood clot in your lung (pulmonary embolus). This was most likely caused by the breast cancer you are being treated for or the Tamoxifen you are on. We started you on a blood thinner to reduce and prevent future blood clots which you will continue outside of the hospital. New Medication: Eliquis 10 mg twice a day for one week. Then Eliquis 5 mg twice a day every day. Your blood sugar was also elevated in the hospital. Your A1c was 7.3, which is the measure of average sugar in your blood for 3 months. For your age, your level is okay, but could be improved to prevent having a heart attack or stroke in the future. Talk to your primary care provider about medications that can help keep your blood sugar a little more under control. You should also talk to your primary care provider about starting a medication called a Statin, as it will help your cholesterol be maintained and prevent heart attacks and strokes. Your sodium and potassium levels were also low on admission, which is most likely secondary to your Hydrochlorothiazide (HCTZ, BP medication). We have stopped it at this time due to these abnormalities. Discuss with your primary care physician starting a different hypertension medication that won't have the same side effects. Pending Studies at Discharge: No Stand-Alone Forms: [employer] [place] [employer], Smoking Cessation Medications and DC Order Prescriptions: New Eliquis 5 mg Tablet 10 mg PO BID 30 Days Qty: 90 RF: 0 aspirin 81 mg Tablet,Delayed Release (Dr/Ec) 81 mg PO QAM Qty: 30 RF: 0 naproxen 250 mg tablet 250 mg PO BID PRN (Reason: pain) Qty: 14 RF: 0 Continued lisinopril 10 mg tablet 10 mg PO QAM Qty: 90 RF: 3 tramadol 50 mg tablet See Rx Instructions PO Q6H PRN (Reason: pain) Qty: 25 RF: 0 fluticasone propionate [Flonase Allergy Relief] 50 mcg/actuation [place],Suspension 2 spray INTRANASAL HS RF: 0 tamoxifen 20 mg Tablet 20 mg PO QAM RF: 0 ezetimibe 10 mg tablet 10 mg PO QAM RF: 0 cyanocobalamin (vitamin B-12) [Vitamin B-12] 1,000 mcg Tablet 1,000 mcg PO QAM RF: 0 omeprazole 20 mg capsule,delayed release(DR/EC) 20 mg PO DAILYBB RF: 0 tramadol 50 mg tablet 50 mg PO Q8H PRN (Reason: pain) 3 Days Qty: 9 RF: 0 prednisone 50 mg tablet 50 mg PO DAILY 4 Days Qty: 4 RF: 0 lidocaine 5 % adhesive patch,medicated 1 patch TOP DAILY PRN (Reason: pain) Qty: 15 RF: 0 Discontinued hydrochlorothiazide 25 mg tablet 25 mg PO QAM Qty: 90 RF: 3 Discharge Orders: Discharge Order (Routine); Ordered 02/12/21 Ordered By: Olivia Monroe/Other Patient Handouts: High Blood Sugar (Hyperglycemia), Managing Type 2 Diabetes, 5 Steps for Eating Healthier, Managing Diabetes: The A1C Test Admission Data Admit Date/Time: 02/11/21 21:16 Attending Provider: Lito Dominique Admit Provider: Idris Tapia Primary Care Provider: Jewell Nugent Other Providers: Lito Marte ; Samuel Woodward ; Olivia Pack Other Interventions: Discharge Summary Assessment (RN) Last Done: 02/12/21 14:58 Supervising Physician Co-Signing Physician Notes Attending attestation Pt seen and examined in concert with Dr. Pack. In agreement with the documented findings as noted in the resident documentation with any exceptions or additions as noted here. Improvement in right shoulder pain with topical lidocaine and pain management as noted. Does attest to increased lifting/moving of grandchildren which may be potential cause. On examination, S1/S2 nl RRR no MCG. CTAB. Abd NT/ND BS+ve. Upper extremity examination with +ve AC joint compression and posterior delt TTP, else as noted. Pulmonary embolism - transitioned from heparin drip to DOAC with follow up with heme/onc after discharge for further management in the setting of breast cancer on chemotherapy Right shoulder pain - cardiac evaluation without apparent cardiac cause - would likely benefit from shoulder XR and ?injection vs. further evaluation in outpatient setting Else see resident documentation as noted. Resident Activity Tracking Resident Involvement: Resident Care Provided Care Provided: Adult Hospital Medicine
--- NOTE | 2021-02-12 15:56 | Cardiology Consultation ---
Date of Consultation February 12, 2021 Assessment & Plan (1) Abnormal EKG: While her EKG is not entirely normal, I do not believe this represents acute injury. She appears to have more VT depression rather than ST elevation and there are no reciprocal changes. Additionally, her symptoms are atypical for acute coronary syndrome, there longstanding in nature and there has been no elevation in her cardiac biomarkers. She did report some viral symptoms recently. She does have some pleuritic symptoms with deep inspiration currently. It is possible this represents some mild pericarditis. However, do not think this require specific treatment. Her echocardiogram was unremarkable in this regard. (2) Pulmonary embolus: She appears to incidentally have been discovered to have a pulmonary embolus. She did not report significant breathing difficulty. No hypoxia. Some element of tachycardia, but no evidence of right heart strain otherwise. Unclear if her EKG changes could be related. Some findings in her EKG could be considered a classic pattern for pulmonary embolus, but a review of older EKGs reveals the same findings. I do not think this is a classic presentation for pulmonary embolus. She has been started on anticoagulation. I do not believe she requires any scheduled follow-up in the cardiology clinic. History of Present Illness Reason for Consultation: Abnormal EKG Requesting Physician: Agustín Attending Physician: Lito Dominique MD History of Present Illness The patient is a 75-year-old woman without a known history of cardiac disease who has been experiencing symptoms trapezius and shoulder discomfort for approximately 2 weeks. The symptoms have waxed and waned in severity but have been unabated since that time. There is some positional component to her discomfort. It does not appear to be point tenderness. She cannot recall any specific injury which resulted in development of the symptoms. Due to the worsening nature of her symptoms she presented yesterday to the emergency room f or evaluation. She was felt to have musculoskeletal pain and treated conservatively however during her initial evaluation she did undergo an EKG which was later interpreted to be abnormal. She was subsequently asked to return to the emergency room and another EKG was more concerning for acute cardiac injury. The patient did not report symptoms of chest discomfort. She admits to being very sedentary individual but does not have limitations associated with activity. She does not report limiting dyspnea. She has not had exertional chest pain. She has not been aware of palpitations or rapid heartbeats. She has not had dizziness, lightheadedness or syncope. Her symptoms of neck and shoulder discomfort have not changed significantly. Allergies Allergy/AdvReac Type Severity Reaction Status Date / Time chlordiazepoxide Allergy Intermediate HIVES Verified 02/11/21 12:43 latex Allergy Mild LOCAL Verified 02/11/21 12:43 DERMATITIS sulfamethoxazole AdvReac Mild nausea Verified 02/11/21 12:43 trimethoprim AdvReac Mild nausea Verified 02/11/21 12:43 Bactrim AdvReac Unknown nausea Verified 02/23/18 10:28 Home Medications Medication Instructions Recorded Confirmed Type fluticasone propionate [Flonase 2 spray INTRANASAL HS 06/23/19 02/11/21 History Allergy Relief] tamoxifen 20 mg PO QAM 06/23/19 02/11/21 History lisinopril 10 mg tablet 10 mg PO QAM #90 tab 12/01/20 02/11/21 Rx tramadol 50 mg tablet See Rx Instructions PO Q6H PRN #25 02/08/21 02/11/21 Rx tab cyanocobalamin (vitamin B-12) 1,000 mcg PO QAM 02/11/21 02/11/21 History [Vitamin B-12] ezetimibe 10 mg PO QAM 02/11/21 02/11/21 History lidocaine 1 patch TOP DAILY PRN #15 ea 02/11/21 02/11/21 Rx omeprazole 20 mg PO DAILYBB 02/11/21 02/11/21 History apixaban [Eliquis] 10 mg PO BID 30 Days #90 tab 02/12/21 Rx aspirin 81 mg PO QAM #30 tab 02/12/21 Rx naproxen 250 mg PO BID PRN #14 tab 02/12/21 Rx Patient History Medical History Colitis GERD (gastroesophageal reflux disease) GI (gastrointestinal bleed) History of colon polyps Hyperlipidemia Hypertension Ischemic colitis Left knee pain Migraine Surgical History History of bilateral cataract extraction History of colonoscopy History of esophagogastroduodenoscopy (EGD) History of left breast biopsy x3--benign, pt states she takes tamoxifen as a preventative for breast cancer History of total hysterectomy with bilateral salpingo-oophorectomy (BSO) Family History Mother Family history of diabetes mellitus Family/Other Family hx of colon cancer granddaughter Sister Breast cancer Other No family history of adverse response to anesthesia Denies family history of Ovarian cancer Prostate cancer Myocardial infarction Colorectal cancer Social History Smoking Status: Never smoker Second Hand Exposure: Yes ( smoked); Hx Alcohol Use: No Hx Substance Use: No Preferred Language: Angolan Communication Ability: Effective Knife Blade Polisher Required: No Beliefs That Will Affect Care: None Current Living Situation: Spouse Feels Safe at Home: Yes Seatbelt Use: always Sunscreen Use: Yes Assistive Devices: Denture - Upper and Glasses Review of Systems Review of Systems: All systems reviewed & are unremarkable except as noted in HPI & below Physical Exam Physical Exam: The patient is alert and oriented. Mood and affect appeared normal. He answered all questions appropriately. HEENT: Pupils are equal and reactive to light and accommodation. Extraocular movements are intact. The sclerae are anicteric. Neuro: Cranial nerves intact Neck: Patient's neck is supple. He has palpable carotid pulses bilaterally without bruits on auscultation. There is no evidence of jugular venous distention. The thyroid is not enlarged. Lungs: Clear to auscultation bilaterally. He has good air movement without use of accessory muscles. No rales wheezes or rhonchi. Cardiac: Heart demonstrates a regular rate and rhythm. Normal S1 and S2. No murmurs on examination. Pulses: The patient has palpable radial pulses bilaterally that are equal in intensity Extremities: There was no evidence of hypoperfusion. There is no cyanosis or clubbing. There is no edema. Skin: I did not appreciate any rashes on examination today. Results & Data ([facility]) Vital Signs (Past 12 Hours) Vital Signs Temp Pulse Pulse Resp BP BP Pulse Ox 02/12/21 15:19 36.7 C 89 18 100/68 95 02/12/21 14:58 37.1 C 100 H 20 106/69 151/78 H 94 02/12/21 14:49 89 02/12/21 11:37 37.1 C 100 H 20 106/69 94 02/12/21 07:43 36.8 C 93 H 20 151/78 H 94 02/12/21 07:03 85 Laboratory Results Abnormal Lab Results 02/11/21 02/11/21 02/11/21 19:06 19:06 19:06 WBC 13.67 H RBC 4.45 Hgb 13.5 POC Hgb Hct 39.2 POC Hct MCV 88.1 MCH 30.3 MCHC 34.4 RDW Std Deviation 44.5 RDW Coeff of Brittany 13.8 Plt Count 335 MPV 10.6 H Immature Gran % (Auto) 0.3 Neut % (Auto) 84.9 Lymph % (Auto) 9.8 Ritchie % (Auto) 4.8 Eos % (Auto) 0.1 Baso % (Auto) 0.1 Neut # (Auto) 11.60 H Lymph # (Auto) 1.34 Ritchie # (Auto) 0.66 H Eos # (Auto) 0.02 Baso # (Auto) 0.01 Immature Gran # (Auto) 0.04 H PT INR APTT PTT Ratio POC Sodium Sodium 127 L POC Potassium Potassium 3.6 POC Chloride Chloride 91 L Carbon Dioxide 30 POC Total CO2 Anion Gap 6.0 POC Anion Gap POC BUN BUN 19 H Creatinine 1.04 POC Creatinine Est Cr Clr Drug Dosing 48.6 Est GFR ( Amer) 60.0 Est GFR (Non-Af Amer) 51.8 BUN/Creatinine Ratio 18.0 Glucose 297 H POC Glucose POC Glucose (other) Estimat Average Glucose Hemoglobin A1c Osmolality 283 Calcium 9.1 POC Ioniz Calcium Bella Total Bilirubin 1.0 AST 25 ALT 33 Alkaline Phosphatase 98 Troponin I < 0.015 Total Protein 7.5 Albumin 2.8 L Globulin 4.7 H Albumin/Globulin Ratio 0.6 L Lipase 78 Urine Osmolality Ur Random Sodium COVID-19 Eval Order SARS-CoV-2 (PCR) Influenza Type A (PCR) Influenza Type B (PCR) RSV (RT-PCR) 02/11/21 02/11/21 02/11/21 19:10 19:10 19:10 WBC RBC Hgb POC Hgb Hct POC Hct MCV MCH MCHC RDW Std Deviation RDW Coeff of Brittany Plt Count MPV Immature Gran % (Auto) Neut % (Auto) Lymph % (Auto) Ritchie % (Auto) Eos % (Auto) Baso % (Auto) Neut # (Auto) Lymph # (Auto) Ritchie # (Auto) Eos # (Auto) Baso # (Auto) Immature Gran # (Auto) PT 10.8 INR 1.1 APTT 24.1 PTT Ratio 0.9 POC Sodium Sodium POC Potassium Potassium POC Chloride Chloride Carbon Dioxide POC Total CO2 Anion Gap POC Anion Gap POC BUN BUN Creatinine POC Creatinine Est Cr Clr Drug Dosing Est GFR ( Amer) Est GFR (Non-Af Amer) BUN/Creatinine Ratio Glucose POC Glucose POC Glucose (other) Estimat Average Glucose Hemoglobin A1c Osmolality Calcium POC Ioniz Calcium Bella Total Bilirubin AST ALT Alkaline Phosphatase Troponin I Total Protein Albumin Globulin Albumin/Globulin Ratio Lipase Urine Osmolality 383 L Ur Random Sodium 24 COVID-19 Eval Order SARS-CoV-2 (PCR) Influenza Type A (PCR) Influenza Type B (PCR) RSV (RT-PCR) 02/11/21 02/11/21 02/11/21 19:15 20:25 20:25 WBC RBC Hgb POC Hgb 13.9 Hct POC Hct 41 MCV MCH MCHC RDW Std Deviation RDW Coeff of Brittany Plt Count MPV Immature Gran % (Auto) Neut % (Auto) Lymph % (Auto) Ritchie % (Auto) Eos % (Auto) Baso % (Auto) Neut # (Auto) Lymph # (Auto) Ritchie # (Auto) Eos # (Auto) Baso # (Auto) Immature Gran # (Auto) PT INR APTT PTT Ratio POC Sodium 126 L Sodium POC Potassium 3.5 Potassium POC Chloride 89 L Chloride Carbon Dioxide POC Total CO2 29 Anion Gap POC Anion Gap 13.0 L POC BUN 19 H BUN Creatinine POC Creatinine 0.9 Est Cr Clr Drug Dosing Est GFR ( Amer) Est GFR (Non-Af Amer) BUN/Creatinine Ratio Glucose POC Glucose POC Glucose (other) 305 H Estimat Average Glucose Hemoglobin A1c Osmolality Calcium POC Ioniz Calcium Bella 1.16 Total Bilirubin AST ALT Alkaline Phosphatase Troponin I Total Protein Albumin Globulin Albumin/Globulin Ratio Lipase Urine Osmolality Ur Random Sodium COVID-19 Eval Order [facility]FluRsv at [facility] SARS-CoV-2 (PCR) NEGATIVE Influenza Type A (PCR) Negative Influenza Type B (PCR) Negative RSV (RT-PCR) Negative 02/12/21 02/12/21 02/12/21 01:05 01:05 01:05 WBC 13.60 H RBC 4.22 Hgb 12.9 POC Hgb Hct 37.2 POC Hct MCV 88.2 MCH 30.6 MCHC 34.7 RDW Std Deviation 44.1 RDW Coeff of Brittany 13.6 Plt Count 299 MPV 10.2 Immature Gran % (Auto) 0.4 Neut % (Auto) 79.9 Lymph % (Auto) 11.6 Ritchie % (Auto) 8.0 Eos % (Auto) 0.0 Baso % (Auto) 0.1 Neut # (Auto) 10.86 H Lymph # (Auto) 1.58 Ritchie # (Auto) 1.09 H Eos # (Auto) 0.00 Baso # (Auto) 0.02 Immature Gran # (Auto) 0.05 H PT INR APTT PTT Ratio POC Sodium Sodium 133 L POC Potassium Potassium 3.6 POC Chloride Chloride 96 L Carbon Dioxide 31 POC Total CO2 Anion Gap 6.0 POC Anion Gap POC BUN BUN 17 Creatinine 0.82 POC Creatinine Est Cr Clr Drug Dosing 60.8 Est GFR ( Amer) 80.0 Est GFR (Non-Af Amer) 69.0 BUN/Creatinine Ratio 20.3 H Glucose 192 H POC Glucose POC Glucose (other) Estimat Average Glucose 166 Hemoglobin A1c 7.4 H Osmolality Calcium 9.2 POC Ioniz Calcium Bella Total Bilirubin AST ALT Alkaline Phosphatase Troponin I < 0.015 Total Protein Albumin Globulin Albumin/Globulin Ratio Lipase Urine Osmolality Ur Random Sodium COVID-19 Eval Order SARS-CoV-2 (PCR) Influenza Type A (PCR) Influenza Type B (PCR) RSV (RT-PCR) 02/12/21 02/12/21 02/12/21 02:45 07:40 08:48 WBC RBC Hgb POC Hgb Hct POC Hct MCV MCH MCHC RDW Std Deviation RDW Coeff of Brittany Plt Count MPV Immature Gran % (Auto) Neut % (Auto) Lymph % (Auto) Ritchie % (Auto) Eos % (Auto) Baso % (Auto) Neut # (Auto) Lymph # (Auto) Ritchie # (Auto) Eos # (Auto) Baso # (Auto) Immature Gran # (Auto) PT INR APTT 43.9 H PTT Ratio 1.7 POC Sodium Sodium POC Potassium Potassium POC Chloride Chloride Carbon Dioxide POC Total CO2 Anion Gap POC Anion Gap POC BUN BUN Creatinine POC Creatinine Est Cr Clr Drug Dosing Est GFR ( Amer) Est GFR (Non-Af Amer) BUN/Creatinine Ratio Glucose POC Glucose 121 H POC Glucose (other) Estimat Average Glucose Hemoglobin A1c Osmolality Calcium POC Ioniz Calcium Bella Total Bilirubin AST ALT Alkaline Phosphatase Troponin I < 0.015 Total Protein Albumin Globulin Albumin/Globulin Ratio Lipase Urine Osmolality Ur Random Sodium COVID-19 Eval Order SARS-CoV-2 (PCR) Influenza Type A (PCR) Influenza Type B (PCR) RSV (RT-PCR) 02/12/21 02/12/21 08:48 11:28 WBC RBC Hgb POC Hgb Hct POC Hct MCV MCH MCHC RDW Std Deviation RDW Coeff of Brittany Plt Count MPV Immature Gran % (Auto) Neut % (Auto) Lymph % (Auto) Ritchie % (Auto) Eos % (Auto) Baso % (Auto) Neut # (Auto) Lymph # (Auto) Ritchie # (Auto) Eos # (Auto) Baso # (Auto) Immature Gran # (Auto) PT INR APTT 36.3 H PTT Ratio 1.4 POC Sodium Sodium POC Potassium Potassium POC Chloride Chloride Carbon Dioxide POC Total CO2 Anion Gap POC Anion Gap POC BUN BUN Creatinine POC Creatinine Est Cr Clr Drug Dosing Est GFR ( Amer) Est GFR (Non-Af Amer) BUN/Creatinine Ratio Glucose POC Glucose 147 H POC Glucose (other) Estimat Average Glucose Hemoglobin A1c Osmolality Calcium POC Ioniz Calcium Bella Total Bilirubin AST ALT Alkaline Phosphatase Troponin I Total Protein Albumin Globulin Albumin/Globulin Ratio Lipase Urine Osmolality Ur Random Sodium COVID-19 Eval Order SARS-CoV-2 (PCR) Influenza Type A (PCR) Influenza Type B (PCR) RSV (RT-PCR) Diagnostic Findings Of a right pulmonary vein thrombus. She also also noted to have a sclerotic lesion in the T12 vertebrae measuring 0.8 cm. Echocardiogram was performed today which revealed normal LV systolic function and wall motion. No significant valvular heart disease. Mild LVH and stage II diastolic dysfunction. PG Care Time/CCT Total # of Minutes Spent Total Time Spent with Patient: Total time spent is greater than 50% in coordination of care (as documented) at patient's floor/unit and/or counseling patient: Coding Level of Care Code 29067 Initial Inpt Care Lvl 3 Diagnoses Abnormal EKG R94.31 Pulmonary embolus I26.99
--- NOTE | 2021-02-13 14:57 | Electrocardiogram Report ---
Test Reason : Blood Pressure : / mmHG Vent. Rate : 086 BPM Atrial Rate : 086 BPM P-R Int : 176 ms QRS Dur : 088 ms QT Int : 378 ms P-R-T Axes : 059 044 039 degrees QTc Int : 452 ms Poor data quality, interpretation may be adversely affected Normal sinus rhythm Possible Left atrial enlargement TX depression Abnormal ECG When compared with ECG of 11-FEB-2021 19:02, (unconfirmed) No significant change was found Confirmed by Mehdi Marte ([id number]) on 02/13/2021 2:57:17 PM Referred By: REFERRED SELF Confirmed By:Michael Marte
--- NOTE | 2021-02-13 14:57 | Electrocardiogram Report ---
Test Reason : Blood Pressure : / mmHG Vent. Rate : 082 BPM Atrial Rate : 082 BPM P-R Int : 176 ms QRS Dur : 092 ms QT Int : 382 ms P-R-T Axes : 078 049 040 degrees QTc Int : 446 ms Normal sinus rhythm Possible Left atrial enlargement CA depression Abnormal ECG When compared with ECG of 11-FEB-2021 12:17, (unconfirmed) Nonspecific T wave abnormality no longer evident in Lateral leads Confirmed by Mehdi Marte ([id number]) on 02/13/2021 2:56:59 PM Referred By: REFERRED SELF Confirmed By:Michael Marte
== END 2021-02-12 16:41 | disposition home or self-care (01) ==
LOC: ED 17:20 → INTOOBSV 21:16 → SUATTDRO 21:16 → 2W 21:16